=== PATIENT | male | born 1960 | race Caucasian/White ===

== ENCOUNTER 2023-03-09 06:57 | Emergency (ER) | payer OTHER, SELFPAY ==
[2023-03-09 06:59] VITALS: BP 138/88; PULSE 85; RESP 18; TEMP 36.7; O2SAT 98; BMI 31.3
[2023-03-09] MEDS: ORPHENADRINE 60 MG/ 2 ML VIAL IM (07:33)
[2023-03-09] MEDS: KETOROLAC TROMETHAMINE 60 MG/2 ML VIAL IM (07:33)
--- NOTE | 2023-03-09 07:35 | XR_ITS ---
The [address] [address] Patient Name: MARIAM LEE MRN: [id number] date: 1960 Sex: M Assigned Patient Location: ER Current Patient Location: ER Accession/Order Number: [id number] Exam Date: 03/09/2023 08:35 Report Date: 03/09/2023 09:10 At the request of: YOSHI ORELLANA Procedure: XR lumbar spine 2-3V EXAMINATION: XR lumbar spine 2-3V HISTORY: BACK PAIN r COMPARISON: No relevant comparison available. FINDINGS: BONES: Normal alignment with no acute fracture or spondylolisthesis. Mild degenerative spondylosis. Mild to moderate facet osteoarthropathy DISC SPACES: Moderate narrowing L5-S1 PARASPINOUS: Negative. No paraspinous abnormality is seen. OTHER: Dilated small bowel loops measuring up to 4.2 cm XR/XR lumbar spine 2-3V IMPRESSION: Mild degenerative changes of the spine Moderate dilation of small bowel loops Electronically authenticated by: SADIA VALDERRAMA Date: 03/09/2023 09:10
[2023-03-09 07:42] VITALS: O2SAT 96
[2023-03-09 07:43] VITALS: PULSE 80
--- NOTE | 2023-03-09 08:00 | ED_ITS ---
HPI - Back Pain/Injury General Chief Complaint: Back Pain/Injury Stated Complaint: back pain Time Seen by Provider: 03/09/23 07:03 Source: patient Mode of arrival: ambulance Limitations: no limitations History of Present Illness HPI Narrative: 62-year-old male presents for lower back pain. He was getting out of his truck and he twisted and had sudden severe pain in his lower back. He didn't fall and the pain does not radiate. It severe particularly when he tries to move. He does not have recurrent back problems. He's never had back surgery. No upper back pain or abdominal pain. Related Data Home Medications Medication Instructions Recorded Confirmed No Known Home Medications 03/09/23 03/09/23 Previous Rx's Medication Instructions Recorded cyclobenzaprine 10 mg tablet 10 mg PO TID PRN muscle spasm #20 03/09/23 tabs ibuprofen 800 mg tablet 800 mg PO Q8H PRN pain #20 tabs 03/09/23 ondansetron 4 mg disintegrating 4 mg PO Q6H PRN nausea and 03/09/23 tablet vomiting #20 tabs oxycodone-acetaminophen 5 mg-325 1 tab PO Q6H PRN pain #20 tabs 03/09/23 mg tablet (Percocet) Allergies Allergy/AdvReac Type Severity Reaction Status Date / Time Penicillins AdvReac Mild Verified 03/09/23 06:59 Review of Systems ROS Narrative A ten point review of systems is negative except as noted above. [facility] Medical History (Updated 03/09/23 @ 09:34 by Theo Contreras MD) Surgical History (Updated 03/09/23 @ 07:10 by Wai Wilson RN) Social History Smoking status: Never smoker Exam Narrative Exam Narrative: Nurses note and vital signs reviewed and patient is not hypoxic. General: The patient appears uncomfortable and is laying on the cart. Skin: Warm, dry, no pallor noted. There is no rash noted. Head: Normocephalic, atraumatic Eye: Normal conjunctiva, no drainage Ears, Nose, Mouth, and Throat: oral mucosa is moist. Nares patent. Cardiovascular: Regular Rate and Rhythm Respiratory: Patient is in no distress, no accessory muscle use, lungs are clear to auscultation, no wheezing, rales or rhonchi Back: no bruise or rash GI: soft and nontender Musculoskeletal: The patient has no evidence of calf tenderness, no pitting edema, symmetrical pulses noted bilaterally Neurological: A&O, normal speech Psychiatric: Cooperative Constitutional Vital Signs, click to edit/add: Last Vital Signs Temp 98.0 F 03/09/23 06:59 Pulse 82 03/09/23 08:47 Resp 18 03/09/23 08:47 BP 118/83 03/09/23 08:47 Pulse Ox 98 03/09/23 08:47 O2 Del Method Room Air 03/09/23 08:47 Course Vital Signs Vital signs: Vital Signs Temperature 98.0 F 03/09/23 06:59 Pulse Rate 85 03/09/23 06:59 Respiratory Rate 18 03/09/23 06:59 Blood Pressure 138/88 03/09/23 06:59 Pulse Oximetry 98 03/09/23 06:59 Oxygen Delivery Method Room Air 03/09/23 06:59 Temperature 98.0 F 03/09/23 06:59 Pulse Rate 82 03/09/23 08:47 Respiratory Rate 18 03/09/23 08:47 Blood Pressure 118/83 03/09/23 08:47 Pulse Oximetry 98 03/09/23 08:47 Oxygen Delivery Method Room Air 03/09/23 08:47 MDM - Back Pain/Injury MDM Narrative Medical decision making narrative: the patient was given Toradol, Norflex, and morphine and he'll be discharged home. X-ray findings are discussed with the patient. Treatment diagnosis and follow-up were discussed with the patient. Differential Diagnosis Differential diagnosis: Likely lumbar radiculopathy, sciatica and strain of lumbar region Imaging Data lumbar x-ray: Radiologist's impression: Procedure: XR lumbar spine 2-3V EXAMINATION: XR lumbar spine 2-3V HISTORY: BACK PAIN r COMPARISON: No relevant comparison available. FINDINGS: BONES: Normal alignment with no acute fracture or spondylolisthesis. Mild degenerative spondylosis. Mild to moderate facet osteoarthropathy DISC SPACES: Moderate narrowing L5-S1 PARASPINOUS: Negative. No paraspinous abnormality is seen. OTHER: Dilated small bowel loops measuring up to 4.2 cm IMPRESSION: Mild degenerative changes of the spine Moderate dilation of small bowel loops Electronically authenticated by: SADIA VALDERRAMA Date: 03/09/2023 09:10 Discharge Plan Discharge Chief Complaint: Back Pain/Injury Clinical Impression: Strain of lumbar region Patient Disposition: Home, Self-Care Time of Disposition Decision: 09:28 Condition: Good Mode of Transportation: Private Vehicle Prescriptions / Home Meds: New ibuprofen 800 mg tablet 800 mg PO Q8H PRN (Reason: pain) Qty: 20 0RF cyclobenzaprine 10 mg tablet 10 mg PO TID PRN (Reason: muscle spasm) Qty: 20 0RF oxycodone-acetaminophen [Percocet] 5-325 mg tablet 1 tab PO Q6H PRN (Reason: pain) Qty: 20 0RF ondansetron 4 mg tablet,disintegrating 4 mg PO Q6H PRN (Reason: nausea and vomiting) Qty: 20 0RF No Action No Known Home Medications Instructions: Low Back Strain (ED), Back Pain (ED) Stand Alone Forms: Portal Instructions Referrals: Physician,Non-Staff, MD [Primary Care Provider] - 1 week
[2023-03-09] MEDS: BENZONATATE 100 MG CAPSULE 200 MG PO (08:10)
[2023-03-09] MEDS: MORPHINE SULFATE 4 MG/ML VIAL 10 MG IM ×2 (08:10→09:41)
[2023-03-09 08:47] VITALS: BP 118/83; PULSE 82; RESP 18; O2SAT 98
[2023-03-09 10:17] VITALS: BP 126/88; PULSE 82; RESP 18; O2SAT 96
== END 2023-03-09 10:20 | disposition home or self-care (01) ==
PROVIDERS: Emergency Provider Emergency Medicine
DX: S39.012A Strain of muscle, fascia and tendon of lower back, initial encounter (principal); X50.1XXA Overexertion from prolonged static or awkward postures, initial encounter
CPT/HCPCS: 72100; 96372; 99284

== ENCOUNTER 2023-03-09 19:07 | Inpatient (IN) | payer OTHER, SELFPAY ==
[2023-03-09] VITALS (19 sets, daily range): BP systolic 111–153; BP diastolic 77–87; PULSE 73–104; RESP 1–23; TEMP 36.4–36.6; O2SAT 91–94; BMI 31.3; BMI 31.1
--- NOTE | 2023-03-09 19:46 | ED.GENADUL1 ---
HPI - General Adult General Chief complaint: Back Pain/Injury Stated complaint: VOMITING BLACK Time Seen by Provider: 03/09/23 19:22 Source: patient and family Mode of arrival: Wheelchair Limitations: no limitations History of Present Illness HPI narrative: patient seen here this AM for lower back muscular spasm. Discharged home. states shortly after arriving home he vomited black material . He has since vomited twice more and again it was black liquid material. Has not had a BM today. He states he has chronic KELLY which usually occur hs and he has been taking Motrin hs for many months. Denies abdominal or chest pain. Still has lower back pain if he moves. Not as painful if he lays still Related Data Home Medications Medication Instructions Recorded Confirmed No Known Home Medications 03/09/23 03/09/23 Previous Rx's Medication Instructions Recorded cyclobenzaprine 10 mg tablet 10 mg PO TID PRN muscle spasm #20 03/09/23 tabs ibuprofen 800 mg tablet 800 mg PO Q8H PRN pain #20 tabs 03/09/23 ondansetron 4 mg disintegrating 4 mg PO Q6H PRN nausea and 03/09/23 tablet vomiting #20 tabs oxycodone-acetaminophen 5 mg-325 1 tab PO Q6H PRN pain #20 tabs 03/09/23 mg tablet (Percocet) Allergies Allergy/AdvReac Type Severity Reaction Status Date / Time Penicillins AdvReac Mild Verified 03/09/23 06:59 Review of Systems ROS Status of ROS 10 or more systems reviewed and unremarkable except as noted in history and below [facility] Medical History (Updated 03/09/23 @ 21:49 by Axel Gannon MD) Surgical History (Updated 03/09/23 @ 07:10 by Wai Wilson RN) Social History Smoking status: Never smoker Exam Constitutional Vital Signs, click to edit/add: Last Vital Signs Temp 97.8 F 03/09/23 19:21 Pulse 76 03/09/23 21:20 Resp 13 03/09/23 21:20 BP 120/79 03/09/23 20:00 Pulse Ox 91 L 03/09/23 20:10 O2 Del Method Room Air 03/09/23 19:21 Common normals: no apparent distress, average body habitus, oriented x3, no limitations, healthy appearing, alert and well nourished [facility] Common normals: normocephalic and head/scalp atraumatic Respiratory Common normals: normal respiratory effort, no retractions, no use of accessory muscles and clear to auscultation bilaterally Cardio Common normals: regular rate, regular rhythm, S1 normal heart sound and S2 normal heart sound GI Common normals: Normal to inspection, nondistended, normoactive bowel sounds present, soft to palpation and non-tender Extremity Common normals: normal to inspection and full ROM Neuro Common normals: oriented x3, CN's II-XII intact bilaterally, moves all extremities, no focal motor deficits and no sensory deficits noted Psych Appearance: grossly normal Course Vital Signs Vital signs: Vital Signs Temperature 97.8 F 03/09/23 19:21 Pulse Rate 104 H 03/09/23 19:21 Respiratory Rate 16 03/09/23 19:21 Blood Pressure 133/81 03/09/23 19:21 Pulse Oximetry 93 L 03/09/23 19:21 Oxygen Delivery Method Room Air 03/09/23 19:21 Temperature 97.8 F 03/09/23 19:21 Pulse Rate 76 03/09/23 21:20 Respiratory Rate 13 03/09/23 21:20 Blood Pressure 120/79 03/09/23 20:00 Pulse Oximetry 91 L 03/09/23 20:10 Oxygen Delivery Method Room Air 03/09/23 19:21 Medical Decision Making [facility] Narrative Medical decision making narrative: patient presents with back pain and UGI bleed. Seen earlier today for lower back muscular spasmodic pain. once home he vomited dark black liquid material x 3 and retuned. Still has pain if he changes position. As long as he lays still his back pain is not bad. NG placed and 200 of black GI liquid obtained. No evidence of active bleeding. Hgb 15. BUN 23. Patient VSS. Give protonix [address] Lane who is international affairs vice president Surgeon and can consult on the patient. Discussed with Dr Carrillo and patient accepted as as admission Lab Data Labs: Lab Results 03/09/23 Range/Units 19:50 WBC 11.8 H (4.0-11.0) 10^3/uL RBC 4.83 (4.70-6.10) 10^6/uL Hgb 15.0 (14.0-18.0) g/dL Hct 44.4 (42.0-54.0) % MCV 91.9 (80.0-94.0) fL MCH 31.1 (25.9-34.0) pg MCHC 33.8 (29.9-35.2) g/dL RDW 12.8 (11.0-15.0) % Plt Count 245 (150-450) 10^3/uL MPV 9.2 L (9.5-13.5) fL Neut % (Auto) 84.2 H (43.0-75.0) % Lymph % (Auto) 7.9 L (20.5-60.0) % Christian % (Auto) 7.1 (1.7-12.0) % Eos % (Auto) 0.1 L (0.9-7.0) % Baso % (Auto) 0.3 (0.2-2.0) % Neut # (Auto) 10.0 H (1.4-6.5) 10^3/uL Lymph # (Auto) 0.9 L (1.2-3.8) 10^3/uL Christian # (Auto) 0.8 (0.3-0.8) 10^3/uL Eos # (Auto) 0.0 (0.0-0.7) 10^3/uL Baso # (Auto) 0.0 (0.0-0.1) 10^3/uL Abs Immat Gran (auto) 0.05 H (0.00-0.03) 10^3/uL Imm/Tot Granulo (auto) 0.4 (0.0-0.5) % Sodium 131 L (136-145) mmol/L Potassium 4.0 (3.5-5.1) mmol/L Chloride 105 (98-107) mmol/L Carbon Dioxide 23.9 (21.0-32.0) mmol/L Anion Gap 6.1 BUN 23.0 H (7.0-18.0) mg/dL Creatinine 0.93 (0.70-1.30) mg/dL Est GFR ( Amer) >60 (>=60) Est GFR (Non-Af Amer) >60 (>=60) BUN/Creatinine Ratio 24.7 Glucose 134 H (74-106) mg/dL Lactate 2.0 (0.4-2.0) mmol/L Calcium 8.4 L (8.5-10.1) mg/dL Total Bilirubin 0.5 (0.2-1.0) mg/dL AST 15 (15-37) U/L ALT 29 (16-63) U/L Alkaline Phosphatase 46 (46-116) U/L Troponin I High Sens <4.0 L (4.0-76.1) pg/mL Total Protein 7.4 (6.4-8.2) g/dL Albumin 3.9 (3.4-5.0) g/dL Globulin 3.5 g/dL Albumin/Globulin Ratio 1.1 Discharge Plan Discharge Chief Complaint: Back Pain/Injury Clinical Impression: Back pain, Acute upper gastrointestinal bleeding Patient Disposition: Admitted As Inpatient
[2023-03-09] MEDS: LORAZEPAM 2 MG/ML 1 ML VIAL 1 MG IV (20:01)
[2023-03-09] MEDS: ONDANSETRON PF 4 MG/2 ML VIAL IV (20:01)
[2023-03-09] MEDS: 0.9 % SODIUM CHLORIDE 1,000 ML 999 ML IV (20:01)
[2023-03-09 20:02] LABS: Basophils Percent Auto 0.3 % (0.2-2.0); Eosinophils Percent Auto 0.1 % (0.9-7.0); Hematocrit 44.4 % (42.0-54.0); Immature Granulocytes Abs Auto 0.05 10^3/uL (0.00-0.03); Immature Granulocytes Pct Auto 0.4 % (0.0-0.5); Lymphocytes Absolute Auto 0.9 10^3/uL (1.2-3.8); Lymphocytes Percent Auto 7.9 % (20.5-60.0); Mean Corpuscular HGB Conc 33.8 g/dL (29.9-35.2); Mean Corpuscular Hemoglobin 31.1 pg (25.9-34.0); Mean Corpuscular Volume 91.9 fL (80.0-94.0); Mean Platelet Volume 9.2 fL (9.5-13.5); Monocytes Absolute Auto 0.8 10^3/uL (0.3-0.8); Monocytes Percent Auto 7.1 % (1.7-12.0); Neutrophils Percent Auto 84.2 % (43.0-75.0); Platelet Count 245 10^3/uL (150-450); Red Blood Count 4.83 10^6/uL (4.70-6.10); Red Cell Distribution Width 12.8 % (11.0-15.0); White Blood Count 11.8 10^3/uL (4.0-11.0)
[2023-03-09] MEDS: PANTOPRAZOLE SODIUM 40 MG VIAL IV (20:04)
--- NOTE | 2023-03-09 20:29 | PC.NURSE ---
NG placed to right nare 16 romansh, 65 at the nare Pt tolerated well Coffee ground emesis immediately presented Set to low suction
--- NOTE | 2023-03-09 20:42 | XR_ITS ---
The [address] [address] Patient Name: MARIAM LEE MRN: [id number] date: 1960 Sex: M Assigned Patient Location: ER Current Patient Location: ER Accession/Order Number: [id number] Exam Date: 03/09/2023 20:50 Report Date: 03/09/2023 21:13 At the request of: MIGUEL CASTRO Procedure: XR abdomen 1V EXAM: XR abdomen 1V HISTORY: NG placement COMPARISON: None. TECHNIQUE: Single AP radiograph of the abdomen FINDINGS: Enteric tube with tip and side port projecting over the expected location of the gastric fundus. There is a nonobstructive bowel gas pattern. Evaluation for intra-abdominal free air is limited on supine radiography. Large abdominal stone or calcifications. Imaged osseous structures appear intact. XR/XR abdomen 1V IMPRESSION: Enteric tube with tip and side-port projecting over expected location of the gastric fundus. Nonobstructive bowel gas pattern. Electronically authenticated by: RAMONA BRYANT Date: 03/09/2023 21:13
[2023-03-09 21:31] LABS: Alanine Aminotransferase 29 U/L (16-63); Albumin Globulin Ratio 1.1; Albumin Level 3.9 g/dL (3.4-5.0); Alkaline Phosphatase 46 U/L (46-116); Anion Gap 6.1; Aspartate Amino Transferase 15 U/L (15-37); BUN Creatinine Ratio 24.7; Bilirubin Total 0.5 mg/dL (0.2-1.0); Calcium 8.4 mg/dL (8.5-10.1); Carbon Dioxide 23.9 mmol/L (21.0-32.0); Chloride 105 mmol/L (98-107); Estimated GFR (African America >60 (>=60); Estimated GFR (Non-African Ame >60 (>=60); Globulin 3.5 g/dL; Glucose 134 mg/dL (74-106); Sodium 131 mmol/L (136-145); Total Protein 7.4 g/dL (6.4-8.2); Troponin I High Sensitivity <4.0 pg/mL (4.0-76.1)
--- NOTE | 2023-03-09 21:31 | PC.NURSE ---
Drr. Gannon speaking to Dr. Lane about an admission/surgery decision
--- NOTE | 2023-03-09 21:34 | PC.NURSE ---
Approximately 200ml of coffee ground like emesis is present in suction canister at this time
[2023-03-10] VITALS (17 sets, daily range): BP systolic 110–122; BP diastolic 67–80; PULSE 78–92; RESP 16–20; TEMP 36.6–36.9; O2SAT 90–95
--- NOTE | 2023-03-10 00:18 | P.PN_ITS ---
Progress Note: Subjective Subjective Interval history: CC: Severe low back pain with muscle spasm Repeated episodes of hematemesis HPI: This is usually healthy 62-year-old male who presents with above complaints. Patient stating that he has been having back pain for few days now. He denies taking excessive amount of NSAIDs. Patient does admit taking ibuprofen daily at nighttime because of headaches. Patient drinks 2?3 beers daily. No history of peptic ulcer, gastritis. Denies any abdominal pain. Sarah ent stating that 2 days he suddenly vomited few times with dark blood in it. He continued to have hematemesis in the emergency room. Dr. Moser consulted and recommended NG tube placement and he is going to see patient in consultation in the morning. Patient starting hemoglobin is 15. Exam Narrative Exam Narrative: ROS: 1.General: no fever, chills, not in distress 2.HEENT: no KELLY, no blurry vision, no swallow problems, no nasal congestion, no sore throat 3.Pulmonary: no cough, SOB, wheezes 4.CVS: no CP, no palpitations, no CAMPBELL, no SOB, no intermittent claudication 5.GI: Please see above 6.: no renal colic, no hematuria, urinary frequency or urgency 7.Extremities: no edema 8.Neurological: no dizziness, vertigo, double or blurry vision, no no focal weakness, no paresthesia, no swallow or speech problems 9.Musculosceletal: no joint pains, no joint swelling, no back pain 10.Dermatological: no skin rashes, no lesions, no pruritus 11.Hematological: no bleeding, no hx/o clots 12.Endocrinological: no heat/cold intolerance, no hx/o diabetes 13.Psychiatric: no suicidal or homicidal thoughts Physical Exam: Not in distress, pleasant, lucid, cooperative, Head - atraumatic, eyes - pupils equal, round, reactive to light, extra ocular movement intact, MMM Neck - supple, thyroid not enlarged, LN not palpated Lungs - clear to auscultation, no dullness on percussion CVS - heart sounds S1, S2, no additional murmurs gallop, regular rate and rhythm Gastrointestinal?abdomen is soft, non-tender, non-distended, no organomegaly, positive bowel sounds Extremities no clubbing, cyanosis or edema Neurological?cranial nerve II?XII grossly intact, no meningeal signs, no cerebellar signs, no sensory deficit Musculoskeletal - joints, no effusions, ROM preserved Dermatological - the skin dry, warm, no rashes Psychiatric?patient is AAO X3, patient has normal affect Constitutional Vital Signs, click to edit/add: Last Vital Signs Temp 97.6 F 03/09/23 22:46 Pulse 92 H 03/09/23 22:46 Resp 18 03/09/23 22:46 BP 153/87 H 03/09/23 22:46 Pulse Ox 91 L 03/09/23 22:46 O2 Del Method Room Air 03/09/23 22:57 Progress Note: Objective Labs Labs: Short CBC 03/09/23 Range/Units 19:50 WBC 11.8 H (4.0-11.0) 10^3/uL Hgb 15.0 (14.0-18.0) g/dL Hct 44.4 (42.0-54.0) % Plt Count 245 (150-450) 10^3/uL BMP 03/09/23 19:50 Sodium 131 L Potassium 4.0 Chloride 105 Carbon Dioxide 23.9 BUN 23.0 H Creatinine 0.93 Glucose 134 H Calcium 8.4 L Liver Function 03/09/23 Range/Units 19:50 Total Bilirubin 0.5 (0.2-1.0) mg/dL AST 15 (15-37) U/L ALT 29 (16-63) U/L Alkaline Phosphatase 46 (46-116) U/L Albumin 3.9 (3.4-5.0) g/dL Progress Note: A&P Assessment and Plan (1) Acute upper gastrointestinal bleeding: Assessment and Plan: GI bleeding- patient condition is guarded and requires admission to telemetry floor for close monitoring and medical management - source of bleeding - upperr GI tract - bowel rest - IV Protonix drip- no coagulopathy present - no need for immediate correction - will consult Care Support Representative to evaluate for urgent EGD/colonoscopy - close monitoring H&H - type and cross - transfuse PRBCs for Hb below 7 if stable of below 8 if continue to bleed (2) Lumbar strain: Assessment and Plan: I am going to start this patient on IV morphine and lorazepam for pain and muscle spasm control Plan END: As the provider for the telehealth service, I attest that I introduced myself to the patient, provided my credentials, disclosed by location and determined that based on a review of the patient's chart and discussion with members of the patient's treatment team, telemedicine via real-time, 2 way, and interactive audio and video platform is an appropriate and effective means of providing the service. ?The patient and I mutually agree this visit is appropriate for telemedicine. ?[place] ?The encounter took approximately 35 minutes. ?The nurse was present during the entire time and I was able to move the stethoscope in appropriate directions. ?The patient was evaluated at the Hospital ? Portions of this note may be dictated using [employer] voice recognition software. Variances in spelling and vocabulary are possible and unintentional. Not all errors may be caught and/or corrected. Please notify the author if any discrepancies are noted and/or if the meaning of any statement is unclear.? ? Patient verbally consented for treatment via video visit with patient currently located at the [facility] and provider located in [place]. Telemedicine Attestation Telemedicine Attestation I conducted this encounter from [facility]] via secure live, [id number] video conference with the patient, located at [facility] with [GI bleed]. Prior to the interview, the risks and benefits of telemedicine were discussed with the patient and verbal consent was obtained.
[2023-03-10] MEDS: 0.9 % SODIUM CHLORIDE 1,000 ML 100 ML IV ×2 (02:14→20:25)
[2023-03-10] MEDS: PANTOPRAZOLE SODIUM 40 MG VIAL IV ×3 (02:14→23:57)
[2023-03-10 02:42] LABS: Lactate/Lactic Acid 1.1 mmol/L (0.4-2.0)
[2023-03-10 04:35] LABS: Hemoglobin 13.6 g/dL (14.0-18.0)
[2023-03-10 04:54] LABS: Anion Gap 11.3; BUN Creatinine Ratio 23.3; Carbon Dioxide 26.8 mmol/L (21.0-32.0); Chloride 109 mmol/L (98-107); Estimated GFR (African America >60 (>=60); Estimated GFR (Non-African Ame >60 (>=60); Glucose 106 mg/dL (74-106); Potassium 4.1 mmol/L (3.5-5.1); Sodium 143 mmol/L (136-145)
[2023-03-10 05:08] LABS: Lactate/Lactic Acid 0.9 mmol/L (0.4-2.0)
--- NOTE | 2023-03-10 05:55 | ECG_ITS ---
The [facility] Test Date: 2023-03-09 Pat Name: MARIAM LEE Department: Room: [facility] Gender: Male [employer]: : [id number] Requested By: [id number] Order Number: [id number] Reading MD: SLY DAN Measurements Intervals [place] Rate: 70 P: 36 CT: 146 QRS: 65 QRSD: 92 T: 7 QT: 394 QTc: 414 Interpretive Statements 1100 Sinus rhythm 4068 Nonspecific Twave abnormality 9130 borderline ECG No previous ECG available for comparison Electronically Signed On 03-12-2023 13:05:31 EDT by SLY DAN
[2023-03-10] MEDS: MORPHINE SULFATE 2 MG/ML SYRINGE IV ×2 (06:21→11:35)
[2023-03-10 08:57] LABS: Hematocrit 41.8 % (42.0-54.0); Hemoglobin 13.4 g/dL (14.0-18.0)
[2023-03-10 09:17] LABS: INR 0.97; Partial Thromboplastin Time 25.4 sec (22.3-36.2); Prothrombin Time 10.3 sec (9.0-11.6)
--- NOTE | 2023-03-10 11:30 | P.GSCN_ITS ---
History of Present Illness Consult details Consult date: 03/10/23 Narrative: 62-year-old male who presented to the Emergency Department 2nd occasion yesterday complaints of lower back pain and on the 2nd visit to the Emergency Department complaining of coffee-ground emesis. He takes 600 mg of ibuprofen nightly and drinks 2-3 beers daily. He denies any history of ulcer disease or gastritis. He has a nasogastric tube in place with minimal drainage today. His hemoglobin is stable at 15 g. His had chronic low back pain for quite a while and was told it was muscle spasms. He denies any lifting recently. He works at [employer]. He does no lifting there. 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 He also complains of migraine headaches for which she takes the ibuprofen as well.he is up-to-date on his colonoscopies.denies any abdominal pain nausea or vomiting other than above. Review of Systems ROS Status of ROS 10 or more systems reviewed and unremarkable except as noted in history and below [facility] Medical History (Updated 03/09/23 @ 22:42 by Andreina Biggs RN) Surgical History Family History Other Family history of diabetes mellitus Social History Within the past year, how often did you have a drink containing alcohol: 2-3 times a week Within the past year, how many standard drinks containing alcohol did you have on a typical day: 1 or 2 Total score: 0 Score interpretation: A score less than 4 is consistent with normal alcohol consumption. Smoking status: Never smoker Non-prescribed substance use: denies use Highest level of school completed/degree received: high school graduate Are you now , , , , never or living with a partner: In a typical week, how many times do you talk on the telephone with family, friends, or neighbors: 3 or more times per week How often do you get together with friends or relatives: 3 or more times per week Little interest or pleasure in doing things: not at all Feeling down, depressed, or hopeless: not at all Feel stressed/tense/nervous/anxious/difficulty sleeping: not at all Do you think of yourself as: straight/heterosexual Gender Identity: male Meds Home Medications and Allergies Home Medications Medication Instructions Recorded Confirmed Type No Known Home Medications 03/09/23 03/10/23 History ibuprofen 800 mg tablet 800 mg PO Q8H PRN pain #20 tabs 03/09/23 03/10/23 Rx ondansetron 4 mg disintegrating 4 mg PO Q6H PRN nausea and 03/09/23 03/10/23 Rx tablet vomiting #20 tabs oxycodone-acetaminophen 5 mg-325 1 tab PO Q6H PRN pain #20 tabs 03/09/23 03/10/23 Rx mg tablet (Percocet) Allergies Allergy/AdvReac Type Severity Reaction Status Date / Time Penicillins AdvReac Mild Verified 03/09/23 06:59 Exam Constitutional Vital Signs, click to edit/add: Last Vital Signs Temp 98.4 F 03/10/23 06:25 Pulse 87 03/10/23 06:25 Resp 20 03/10/23 06:25 BP 110/67 03/10/23 06:25 Pulse Ox 91 L 03/10/23 06:25 O2 Del Method Room Air 03/10/23 06:25 Documenting provider has reviewed patient's vital signs: yes Common normals: no apparent distress, average body habitus, oriented x3, healthy appearing and well nourished [facility] Common normals: normocephalic GI Common normals: Normal to inspection, nondistended, normoactive bowel sounds present, soft to palpation and no masses Palpation: tender Details: LLQ Neuro Common normals: oriented x3 and CN's II-XII intact bilaterally Results Labs Labs: Abnormal lab results 03/09/23 03/10/23 03/10/23 Range/Units 19:50 04:11 08:17 WBC 11.8 H (4.0-11.0) 10^3/uL Hgb 13.6 L 13.4 L (14.0-18.0) g/dL Hct 41.8 L (42.0-54.0) % MPV 9.2 L (9.5-13.5) fL Neut % (Auto) 84.2 H (43.0-75.0) % Lymph % (Auto) 7.9 L (20.5-60.0) % Eos % (Auto) 0.1 L (0.9-7.0) % Neut # (Auto) 10.0 H (1.4-6.5) 10^3/uL Lymph # (Auto) 0.9 L (1.2-3.8) 10^3/uL Abs Immat Gran (auto) 0.05 H (0.00-0.03) 10^3/uL Sodium 131 L (136-145) mmol/L Chloride 109 H (98-107) mmol/L BUN 23.0 H 21.0 H (7.0-18.0) mg/dL Glucose 134 H (74-106) mg/dL Calcium 8.4 L 8.0 L (8.5-10.1) mg/dL Troponin I High Sens <4.0 L (4.0-76.1) pg/mL Diabetes panel 03/09/23 03/10/23 Range/Units 19:50 04:11 Sodium 131 L 143 (136-145) mmol/L Potassium 4.0 4.1 (3.5-5.1) mmol/L Chloride 105 109 H (98-107) mmol/L Carbon Dioxide 23.9 26.8 (21.0-32.0) mmol/L BUN 23.0 H 21.0 H (7.0-18.0) mg/dL Creatinine 0.93 0.90 (0.70-1.30) mg/dL Glucose 134 H 106 (74-106) mg/dL Calcium 8.4 L 8.0 L (8.5-10.1) mg/dL AST 15 (15-37) U/L ALT 29 (16-63) U/L Alkaline Phosphatase 46 (46-116) U/L Total Protein 7.4 (6.4-8.2) g/dL Albumin 3.9 (3.4-5.0) g/dL Calcium panel 03/09/23 03/10/23 Range/Units 19:50 04:11 Calcium 8.4 L 8.0 L (8.5-10.1) mg/dL Albumin 3.9 (3.4-5.0) g/dL Pituitary panel 09/15/23 09/16/23 Range/Units 19:50 04:11 Sodium 131 L 143 (136-145) mmol/L Potassium 4.0 4.1 (3.5-5.1) mmol/L Chloride 105 109 H (98-107) mmol/L Carbon Dioxide 23.9 26.8 (21.0-32.0) mmol/L BUN 23.0 H 21.0 H (7.0-18.0) mg/dL Creatinine 0.93 0.90 (0.70-1.30) mg/dL Glucose 134 H 106 (74-106) mg/dL Calcium 8.4 L 8.0 L (8.5-10.1) mg/dL Adrenal panel 03/09/23 03/10/23 Range/Units 19:50 04:11 Sodium 131 L 143 (136-145) mmol/L Potassium 4.0 4.1 (3.5-5.1) mmol/L Chloride 105 109 H (98-107) mmol/L Carbon Dioxide 23.9 26.8 (21.0-32.0) mmol/L BUN 23.0 H 21.0 H (7.0-18.0) mg/dL Creatinine 0.93 0.90 (0.70-1.30) mg/dL Glucose 134 H 106 (74-106) mg/dL Calcium 8.4 L 8.0 L (8.5-10.1) mg/dL Total Bilirubin 0.5 (0.2-1.0) mg/dL AST 15 (15-37) U/L ALT 29 (16-63) U/L Alkaline Phosphatase 46 (46-116) U/L Total Protein 7.4 (6.4-8.2) g/dL Albumin 3.9 (3.4-5.0) g/dL All other labs normal. Assessment and Plan Assessment and Plan (1) Acute upper gastrointestinal bleeding: (2) Lumbar strain: Plan discontinue NG tube Try clear liquids Probably scope with EGD tomorrow morning. Continue Protonix drip.
--- NOTE | 2023-03-10 11:57 | P.HP_ITS ---
H&P: HPI History of Present Illness Chief complaint: VOMITING BLACK UPPER Gi BLEED BACK PAIN Narrative: Patient with a longstanding history of back pain was seen in the ER earlier in the day and given medication, went home and had several emesis, started having black coffee-ground emesis at home. Presented to the emergency room. Hemoglobin excellent in ER but with significance of potential bleeding patient was admitted for work-up and treatment of same Review of Systems ROS Status of ROS 10 or more systems reviewed and unremarkable except as noted in history and below [facility] Medical History (Updated 03/09/23 @ 22:42 by Andreina Biggs RN) Surgical History Family History Other Family history of diabetes mellitus Social History Within the past year, how often did you have a drink containing alcohol: 2-3 times a week Within the past year, how many standard drinks containing alcohol did you have on a typical day: 1 or 2 Total score: 0 Score interpretation: A score less than 4 is consistent with normal alcohol consumption. Smoking status: Never smoker Non-prescribed substance use: denies use Highest level of school completed/degree received: high school graduate Are you now , , , , never or living with a partner: In a typical week, how many times do you talk on the telephone with family, friends, or neighbors: 3 or more times per week How often do you get together with friends or relatives: 3 or more times per week Little interest or pleasure in doing things: not at all Feeling down, depressed, or hopeless: not at all Feel stressed/tense/nervous/anxious/difficulty sleeping: not at all Do you think of yourself as: straight/heterosexual Gender Identity: male Meds Home Medications and Allergies Home Medications Medication Instructions Recorded Confirmed Type No Known Home Medications 03/09/23 03/10/23 History ibuprofen 800 mg tablet 800 mg PO Q8H PRN pain #20 tabs 03/09/23 03/10/23 Rx ondansetron 4 mg disintegrating 4 mg PO Q6H PRN nausea and 09/15/23 09/16/23 Rx tablet vomiting #20 tabs oxycodone-acetaminophen 5 mg-325 1 tab PO Q6H PRN pain #20 tabs 03/09/23 03/10/23 Rx mg tablet (Percocet) Allergies Allergy/AdvReac Type Severity Reaction Status Date / Time Penicillins AdvReac Mild Verified 03/09/23 06:59 Exam Constitutional Vital Signs, click to edit/add: Last Vital Signs Temp 98.4 F 03/10/23 06:25 Pulse 87 03/10/23 06:25 Resp 20 03/10/23 06:25 BP 110/67 03/10/23 06:25 Pulse Ox 91 L 03/10/23 06:25 O2 Del Method Room Air 03/10/23 06:25 Common normals: no apparent distress, average body habitus, oriented x3, no limitations, healthy appearing, alert and well nourished [facility] Common normals: normocephalic and head/scalp atraumatic Respiratory Common normals: normal respiratory effort, no retractions, no use of accessory muscles and clear to auscultation bilaterally Cardio Common normals: regular rate, regular rhythm, S1 normal heart sound and S2 normal heart sound GI Common normals: Normal to inspection, nondistended, normoactive bowel sounds present, soft to palpation and non-tender Extremity Common normals: normal to inspection and full ROM Neuro Common normals: oriented x3, CN's II-XII intact bilaterally, moves all extremities, no focal motor deficits and no sensory deficits noted Psych Appearance: grossly normal Results Labs Labs: Short CBC 03/09/23 03/10/23 03/10/23 Range/Units 19:50 04:11 08:17 WBC 11.8 H (4.0-11.0) 10^3/uL Hgb 15.0 13.6 L 13.4 L (14.0-18.0) g/dL Hct 44.4 42.0 41.8 L (42.0-54.0) % Plt Count 245 (150-450) 10^3/uL BMP 03/09/23 03/10/23 19:50 04:11 Sodium 131 L 143 Potassium 4.0 4.1 Chloride 105 109 H Carbon Dioxide 23.9 26.8 BUN 23.0 H 21.0 H Creatinine 0.93 0.90 Glucose 134 H 106 Calcium 8.4 L 8.0 L Liver Function 03/09/23 Range/Units 19:50 Total Bilirubin 0.5 (0.2-1.0) mg/dL AST 15 (15-37) U/L ALT 29 (16-63) U/L Alkaline Phosphatase 46 (46-116) U/L Albumin 3.9 (3.4-5.0) g/dL Assessment and Plan Assessment and Plan (1) Acute upper gastrointestinal bleeding: (2) Lumbar strain: (3) Strain of lumbar region: Plan Acute upper gastrointestinal blood loss anemia secondary to acute upper gastrointestinal bleeding-patient is down 1.5 g on his hemoglobin, will continue to check every 4 hours. NG tube in place, surgical consultation completed, check PT PTT, H. pylori Back pain-patient continues to have spasms, will add Norflex IV Mild leukocytosis resolved this morning, likely secondary to pain or possibly recent steroid use Hyponatremia-improved, continue to monitor
[2023-03-10 13:08] LABS: Hematocrit 41.3 % (42.0-54.0); Hemoglobin 13.5 g/dL (14.0-18.0)
--- NOTE | 2023-03-10 13:21 | PC.NURSE ---
ng removed at this time per physician order. patient tolerated without complaint.
[2023-03-10] MEDS: ORPHENADRINE 60 MG/ 2 ML VIAL IV ×2 (14:03→23:57)
[2023-03-10 16:25] LABS: Hematocrit 41.3 % (42.0-54.0); Hemoglobin 13.3 g/dL (14.0-18.0)
[2023-03-10 20:10] LABS: Hematocrit 40.9 % (42.0-54.0); Hemoglobin 13.1 g/dL (14.0-18.0)
[2023-03-11] VITALS (84 sets, daily range): BP systolic 89–140; BP diastolic 63–82; PULSE 69–145; RESP 5–42; TEMP 36.3–37.2; O2SAT 89–99
[2023-03-11 00:56] LABS: Hematocrit 39.6 % (42.0-54.0); Hemoglobin 12.7 g/dL (14.0-18.0)
[2023-03-11 04:53] LABS: Hematocrit 39.6 % (42.0-54.0); Hemoglobin 12.9 g/dL (14.0-18.0)
[2023-03-11] MEDS: MORPHINE SULFATE 2 MG/ML SYRINGE IV (07:47)
[2023-03-11] MEDS: LACTATED RINGER'S SOLUTION 1,000 ML 50 ML IV (08:10)
[2023-03-11 08:11] LABS: Hematocrit 40.6 % (42.0-54.0); Hemoglobin 13.3 g/dL (14.0-18.0)
--- NOTE | 2023-03-11 08:22 | PM.GSPRC ---
Date of procedure: 03/11/23 Indications for Procedure: hematemesis/coffee-ground emesis Pre-op diagnosis: hematemesis/coffee-ground emesis Post-op diagnosis: other (multiple gastric ulcers, small hiatal hernia, erosive esophagitis) Procedure: EGD with biopsy antrum and distal esophagus Findings: as above Anesthesia: MAC Surgeon: Shay Lane Procedure Summary: 62-year-old male was taken to the endoscopy suite placed in the left lateral recumbent position and given IV sedation by the counter installer. The Olympus EGD scope was advanced under direct visualization into the esophagus stomach through the pylorus to the 1st 2nd 3rd and 4th portions of the duodenum.the duodenum was completely normal. In the stomach he had multiple gastric ulcers which biopsies were taken and hemostasis maintained. Scope was retroflexed on itself looking the GE junction. A small hiatal hernia noted. The scope was then withdrawn from the stomach into the distal esophagus where he has erosive esophagitis noted and biopsies were taken ?2 and hemostasis maintained and the rest the esophagus was normal. I would recommend discontinuation of all nonsteroidal anti-inflammatory drugs, alcohol and recommend a proton pump inhibitor for eight weeks plus silk with eight for one month. Estimated blood loss (mL): 1 Specimens: antral and esophageal biopsies Complications: No Condition: stable Disposition: PACU
--- NOTE | 2023-03-11 09:26 | ECG_ITS ---
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
[2023-03-11] MEDS: METOPROLOL TARTRATE 5 MG/5 ML VIAL IVP ×2 (09:43→10:12)
--- NOTE | 2023-03-11 10:31 | PC.NURSE ---
notified physician dr rodriguez thats currently on the floor patient states pain in chest is now a 3/10and feels heavy like pressure. physician states he will address.
[2023-03-11] MEDS: NITROGLYCERIN 0.4 MG BOTTLE PO (10:37)
[2023-03-11] MEDS: OMEPRAZOLE 40 MG CAPSULE.DR PO ×2 (10:40→20:41)
[2023-03-11 10:44] LABS: Troponin I High Sensitivity 6.2 pg/mL (4.0-76.1)
[2023-03-11 10:49] LABS: Thyroid Stimulating Hormone 2.261 uIU/mL (0.358-3.740)
[2023-03-11] MEDS: DILTIAZEM HCL 25 MG/5 ML VIAL 10 MG IV (11:02)
[2023-03-11] MEDS: 0.9 % SODIUM CHLORIDE 1,000 ML 100 ML IV (11:24)
--- NOTE | 2023-03-11 12:14 | CA_ITS ---
Patient: MARIAM LEE Exam Date: 03/12/2023 : 1960 Gender:M Ordering : SHAIKH Rock DESAI . Admission #: [id number] Family : SLY FORDDada . Order #: [id number] CLICK HERE TO VIEW EXAM ECHOCARDIOGRAM REPORT PROCEDURE: CA ECHO DOPPLER COMPLETE INDICATIONS: new onset afib COMPARISON: None. DESCRIPTION: COMPLETE ECHOCARDIOGRAM Real-time transthoracic echocardiography with 2D, M-mode, spectral and color flow Doppler performed. QUALITY: Technical quality was good. LEFT VENTRICLE: Normal chamber size. Normal left ventricular wall thickness. LV EF: Global left ventricular systolic function is normal. Visual estimation of left ventricular ejection fraction is 65% DIASTOLIC: Normal diastolic function. ATRIAL SEPTUM: Inadequately seen. LEFT ATRIUM: Normal chamber size. RIGHT ATRIUM: Mild dilatation. RIGHT VENTRICLE: Normal chamber size. Normal right ventricular systolic function. TRICUSPID VALVE: Normal mobility and thickness. No stenosis with trivial regurgitation. No evidence of pulmonary hypertension. RVSP 28mmHg MITRAL VALVE: Normal mobility and thickness. No evidence of mitral valve stenosis. There is no mitral annular calcification. Trivial mitral regurgitation. AORTIC VALVE: Normal trileaflet appearance. No visible sclerosis. Normal leaflet mobility. No evidence of aortic valve stenosis. No aortic regurgitation. AORTIC ROOT: Normal diameter and appearance. PULMONIC VALVE: Normal thickness and mobility. No stenosis. No regurgitation. PERICARDIUM: No evidence of pericardial effusion. IVC: Collapses with inspirations. Normal size. CONCLUSION: 1. Global left ventricular systolic function is normal; visually estimated ejection fraction is 60 to 65% 2. Normal diastolic function 3. The right atrium is mildly dilated 4. The right ventricle is normal in size and systolic function 5. No significant valvular abnormalities Adult Echocardiography Procedure Report Left Ventricle LVEDD (3.7 - 5.6 cm): 4.23 cm LVESD (2.2 - 4.0 cm): 2.77 cm LVIVS thickness (0.6 - 1.2 cm): 1.07 cm LVPW thickness (0.5 - 1.0 cm): 0.98 cm e': 0.13 m/s E - e': 6.53 LVOT Max Gradient: 5.81 mm[Hg], 5.36 mm[Hg] LVOT Area (cm2): 1.18 m/s Peak Velocity (LVOT): 1.20 m/s, 1.16 m/s Mean Velocity (LVOT): 0.84 m/s LVOT Diameter 2.17 cm Left Ventricular Ejection Fraction: 69.88 % Left Atrium LA Volume Index (2D A2C): 23.84 ml/m2 Left Atrium Systolic Dimension: 3.21 cm Mitral Valve MV E to A Ratio: 1.15 Mitral Valve A-Wave Peak Velocity: 0.71 m/s Mitral Valve E-Wave Peak Velocity: 0.82 m/s Right Ventricle RV Internal Diastolic Dimension: 3.73 cm Aorta AO Root Diam: 2.23 cm Ascending Ao Diam: 3.39 cm Aortic Valve AoV Area (Peak Hakan): 3.22 cm2, 3.28 cm2, 3.16 cm2 AoV Area (VTI): 3.01 cm2, 3.00 cm2, 3.02 cm2 Peak Velocity(Antegrade Flow): 1.36 m/s, 1.36 m/s Peak Gradient(Antegrade Flow): 7.41 mm[Hg], 7.41 mm[Hg] Mean Velocity(Antegrade Flow): 0.97 m/s, 0.96 m/s Mean Gradient(Antegrade Flow): 4.27 mm[Hg], 4.21 mm[Hg] Velocity Time Integral: 27.04 cm, 26.74 cm Tricuspid Valve Peak Velocity (Regurgitant Flow): 2.07 m/s, 1.98 m/s, 2.49 m/s Pulmonic Valve Mean Gradient: 1.82 mm[Hg], 2.21 mm[Hg], 1.67 mm[Hg], 1.81 mm[Hg] Mean Velocity: 0.65 m/s, 0.72 m/s, 0.62 m/s, 0.66 m/s Peak Velocity: 0.85 m/s Peak Gradient: 2.95 mm[Hg], 3.46 mm[Hg], 2.65 mm[Hg], 2.65 mm[Hg] Right Atrium Right Atrium Systolic Pressure: 41.76 ml, 41.76 ml Dictated by: Yvette Beasley M.D. on 03/15/2023 at 16:34 Approved by: Yvette Beasley M.D. on 03/15/2023 at 16:37
--- NOTE | 2023-03-11 12:18 | PM.IMPN1 ---
Progress Note: A&P Assessment and Plan (1) Acute upper gastrointestinal bleeding: Assessment and Plan: P/w hemoptysis. Hb remained stable. EGD this am - shows multiple gastric ulcers. Pathology/biopsy pending. No evidence of active bleeding on EGD Patient switched to PO Omperazole q12. Likely due to excessive NSAIDS use. (2) Gastric ulcer: Assessment and Plan: likely due to NSAIDS use. Started on PO Omeprazole q12 (3) New onset a-fib: Assessment and Plan: New onset afib with RVR. Received 2 Pushes of IV lopressor and then one IV Cardizem. Will start on IV cardizem drip 2D ECHO ordered. Ordered labs to ensure electrolytes are ok. Will transfer to ICU for Afib with RVR and IV cardizem drip Started on PO lopressor 25 q12 (4) Chest pain: Assessment and Plan: Brief episode of Chest discomfort. Resolved with SL nitro. likely due to Rapid afib. Trend troponins. 2D ECHO ordered. Patient is on tele. (5) Lumbar strain: Assessment and Plan: Reasonably controlled. Unchanged. Qualifiers: Encounter type: subsequent encounter Qualified Code(s): S39.012D - Strain of muscle, fascia and tendon of lower back, subsequent encounter Internal Medicine - PN: Subj Subjective Interval history: Seen and examined. Patient was seen after he returned from OR. I was informed by Anesthesia that patient went into Afib with RVR in PACU with HR in 140-150. Initially patient denied any symptoms but later on reported mild chest discomfort that resolved with SL nitroglycerin. He denies previous hx of Afib and currently has no complaints to offer Exam Constitutional Vital Signs, click to edit/add: Last Vital Signs Temp 98.3 F 03/11/23 11:01 Pulse 112 H 03/11/23 11:48 Resp 16 03/11/23 11:48 BP 115/67 03/11/23 11:48 Pulse Ox 94 L 03/11/23 11:54 O2 Del Method Nasal Cannula 03/11/23 11:48 O2 Flow Rate 1 03/11/23 11:48 Documenting provider has reviewed patient's vital signs: yes Common normals: no apparent distress and oriented x3 General appearance: cooperative HENMT Common normals: normocephalic and head/scalp atraumatic Head and scalp: normocephalic and atraumatic Eye Common normals: conjunctivae normal and no scleral icterus Conjunctiva: conjunctiva(e) normal Respiratory Common normals: normal respiratory effort and clear to auscultation bilaterally Effort & inspection: able to speak in complete sentences Auscultation: clear to auscultation bilaterally Cardio Common normals: S1 normal heart sound and S2 normal heart sound Rate: tachycardic Rhythm: abnormal rhythm Heart sounds: S1 normal and S2 normal GI Common normals: Normal to inspection, nondistended, normoactive bowel sounds present, soft to palpation, non-tender and no hepatosplenomegaly Palpation: soft and no hepatosplenomegaly Extremity Common normals: no clubbing, cyanosis or edema Neuro Common normals: oriented x3, moves all extremities and no focal motor deficits Psych Common normals: mental status grossly normal, denies hallucinations, denies homicidal ideation and denies suicidal ideation Internal Medicine - PN: Obj Da Labs Labs: Laboratory Results - last 24 hr 03/10/23 03/10/23 03/10/23 08:17 12:07 16:20 Hgb 13.5 L 13.3 L Hct 41.3 L 41.3 L Troponin I High Sens TSH H. pylori IgG Antibody 0.14 03/10/23 03/11/23 03/11/23 20:02 00:50 04:15 Hgb 13.1 L 12.7 L 12.9 L Hct 40.9 L 39.6 L 39.6 L Troponin I High Sens TSH H. pylori IgG Antibody 03/11/23 03/11/23 08:08 10:20 Hgb 13.3 L Hct 40.6 L Troponin I High Sens 6.2 TSH 2.261 H. pylori IgG Antibody
[2023-03-11 12:25] LABS: Hemoglobin 13.3 g/dL (14.0-18.0)
[2023-03-11] MEDS: dilTIAZem HCL 125 MG in 0.9 % SODIUM CHLORIDE 100 ML 10 MG IV (12:43)
[2023-03-11 13:02] LABS: Anion Gap 10.5; BUN Creatinine Ratio 18.3; Calcium 7.9 mg/dL (8.5-10.1); Carbon Dioxide 25.4 mmol/L (21.0-32.0); Chloride 108 mmol/L (98-107); Estimated GFR (African America >60 (>=60); Estimated GFR (Non-African Ame >60 (>=60); Glucose 90 mg/dL (74-106); Potassium 3.9 mmol/L (3.5-5.1); Sodium 140 mmol/L (136-145)
[2023-03-11] MEDS: BACLOFEN 10 MG TABLET PO ×2 (13:16→21:14)
[2023-03-11] MEDS: OXYCODONE HCL 5 MG TABLET PO ×2 (13:16→22:32)
--- NOTE | 2023-03-11 14:33 | ECG_ITS ---
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
--- NOTE | 2023-03-11 14:34 | PC.NURSE ---
Patient C/O #4 left chest pain without radiation. Chest pain unchanged with deep breath. EKG done per protocol. BP 95/68. Will continue to monitor
--- NOTE | 2023-03-11 14:39 | PC.NURSE ---
Patient states left chest pain gone. Resting with eyes closed. Will cont to monitor
[2023-03-11 15:30] LABS: Hematocrit 41.4 % (42.0-54.0); Hemoglobin 13.7 g/dL (14.0-18.0)
[2023-03-11 15:57] LABS: Troponin I High Sensitivity 7.8 pg/mL (4.0-76.1)
--- NOTE | 2023-03-11 17:30 | ECG_ITS ---
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
--- NOTE | 2023-03-11 17:37 | PC.NURSE ---
Patient converts to RSR at 1657. EKG done. Patient denies C/O at this time. Dr Izaguirre aware
[2023-03-11] MEDS: METOPROLOL TARTRATE 25 MG TABLET PO (20:41)
[2023-03-11] MEDS: SUCRALFATE 1 GM TABLET PO (20:42)
[2023-03-11] MEDS: LORAZEPAM 2 MG/ML 1 ML VIAL 0.5 MG IV (22:32)
[2023-03-12] VITALS (59 sets, daily range): BP systolic 121–140; BP diastolic 78–92; PULSE 75–113; RESP 1–28; TEMP 36.5–36.8; O2SAT 93
[2023-03-12] MEDS: MORPHINE SULFATE 2 MG/ML SYRINGE IV (03:25)
[2023-03-12] MEDS: LORAZEPAM 2 MG/ML 1 ML VIAL 0.5 MG IV (03:25)
[2023-03-12 05:00] LABS: Basophils Percent Auto 0.3 % (0.2-2.0); Eosinophils Absolute Auto 0.2 10^3/uL (0.0-0.7); Hematocrit 39.2 % (42.0-54.0); Immature Granulocytes Abs Auto 0.05 10^3/uL (0.00-0.03); Immature Granulocytes Pct Auto 0.5 % (0.0-0.5); Lymphocytes Absolute Auto 1.4 10^3/uL (1.2-3.8); Lymphocytes Percent Auto 14.5 % (20.5-60.0); Mean Corpuscular HGB Conc 33.2 g/dL (29.9-35.2); Mean Corpuscular Hemoglobin 30.6 pg (25.9-34.0); Mean Corpuscular Volume 92.2 fL (80.0-94.0); Mean Platelet Volume 9.2 fL (9.5-13.5); Monocytes Absolute Auto 1.1 10^3/uL (0.3-0.8); Monocytes Percent Auto 11.4 % (1.7-12.0); Neutrophils Percent Auto 71.3 % (43.0-75.0); Platelet Count 178 10^3/uL (150-450); Red Blood Count 4.25 10^6/uL (4.70-6.10); Red Cell Distribution Width 12.7 % (11.0-15.0); White Blood Count 9.9 10^3/uL (4.0-11.0)
[2023-03-12] MEDS: OXYCODONE HCL 5 MG TABLET PO ×2 (05:00→13:16)
[2023-03-12 05:17] LABS: Alanine Aminotransferase 21 U/L (16-63); Albumin Globulin Ratio 0.9; Albumin Level 2.8 g/dL (3.4-5.0); Alkaline Phosphatase 41 U/L (46-116); Anion Gap 11.4; Aspartate Amino Transferase 10 U/L (15-37); BUN Creatinine Ratio 22.4; Bilirubin Total 0.6 mg/dL (0.2-1.0); Calcium 7.9 mg/dL (8.5-10.1); Carbon Dioxide 25.2 mmol/L (21.0-32.0); Chloride 107 mmol/L (98-107); Estimated GFR (African America >60 (>=60); Estimated GFR (Non-African Ame >60 (>=60); Globulin 3.2 g/dL; Glucose 97 mg/dL (74-106); Potassium 3.6 mmol/L (3.5-5.1); Sodium 140 mmol/L (136-145)
[2023-03-12] MEDS: BACLOFEN 10 MG TABLET PO ×2 (05:47→13:17)
[2023-03-12] MEDS: SUCRALFATE 1 GM TABLET PO ×2 (07:19→13:16)
[2023-03-12] MEDS: OMEPRAZOLE 40 MG CAPSULE.DR PO (08:59)
[2023-03-12] MEDS: METOPROLOL TARTRATE 25 MG TABLET PO (08:59)
[2023-03-12] MEDS: POTASSIUM CHLORIDE 10 MEQ ER TABLET 40 MEQ PO (08:59)
--- NOTE | 2023-03-12 10:23 | CM.NOTE ---
Rounds made with Dr. Nunes, discussed further testing (echo) to be completed today. Possible discharge this afternoon.
--- NOTE | 2023-03-12 11:31 | P.DS_ITS ---
DS: Providers Provider Date of admission: 03/09/23 21:46 Primary care physician: Non-Staff PhysicianMD Consults: 03/10/23 Consult to General Surgeon Routine Consulting Provider: Shay Lane Reason for consultation: upper GI bleed Has provider been notified: Yes Attending physician on discharge: Shaikh Des Discharging clinician: Shaikh Des DS: Diagnosis Discharge Diagnosis (1) Acute upper gastrointestinal bleeding: Assessment and plan: Presented with hematemesis. Hb remained stable and did not required blood tx. EGD showed multiple gastric ulcers likely due to NSAIDS use. Patient educated on avoiding alcohol intake, use of NSAIDS and will go home on PO Omeprazole and carafate. (2) Gastric ulcer: Assessment and plan: likely due to NSAIDS. H.pylori testing is pending (3) New onset a-fib: Assessment and plan: Reverted to NSR. Had to transfer to ICU for cardizem drip. Patient is unfortunately not a good candidate for stroke px with recent UGIB and gastric ulcers. Will d/c on oral Lopressor. Patient will need outpatient f/u with PCP/Cardiology. He might have to undergo Watchmann to protect/reduce risk of thromboembolic stroke with Afib. 2D ECHO shows (4) Chest pain: Assessment and plan: Likely due to Afib with RVR. Resolved. Trop x 3 negative. Will benefit from outpatient Stress test. ` (5) Lumbar strain: Assessment and plan: Improved with use of baclofen. Qualifiers: Encounter type: subsequent encounter Qualified Code(s): S39.012D - Strain of muscle, fascia and tendon of lower back, subsequent encounter DS: Summary Hospital Course Hospital Course: Patient admitted for hematemesis. No episode while in the hospital. Hb remained stable. Did not require tx. Patient underwent EGD - that showed multiple gastric ulcers. Suspect PUD is due to longstanding hx of NSAIDS use for his back pain. Patient educated and advised to avoid alcohol use, NSAIDS use in the future. While in PACU - he developed Afib with RVR for which he was initially given IV lopressor and cardizem pushes but eventually required continuous IV cardizem infusion. Reverted to NSR. He also complained of mild chest discomfort when he was in Afib and it resolved with one SL nitro. 2D ECHO ordered to assess cardiac structure showed Patient medically stable for discharge. He will need outpatient Cardiology F/U for new onset Afib. Status at Discharge Functional status at discharge: independent ambulation Overall status at discharge: patient is back to baseline Time Spent with Patient Time attestation: Total time spent providing and/or coordinating discharge services: Time spent: greater than 30 minutes Exam Constitutional Vital Signs, click to edit/add: Last Vital Signs Temp 98.3 F 03/12/23 04:30 Pulse 90 03/12/23 10:00 Resp 23 03/12/23 07:22 BP 131/78 03/12/23 07:22 Pulse Ox 93 L 03/12/23 07:22 O2 Del Method Room Air 03/11/23 12:41 O2 Flow Rate 1 03/11/23 11:48 Documenting provider has reviewed patient's vital signs: yes Common normals: no apparent distress and oriented x3 General appearance: cooperative HENMT Common normals: normocephalic and head/scalp atraumatic Head and scalp: normocephalic and atraumatic Eye Common normals: conjunctivae normal and no scleral icterus Conjunctiva: conjunctiva(e) normal Respiratory Common normals: normal respiratory effort and clear to auscultation bilaterally Effort & inspection: able to speak in complete sentences Auscultation: clear to auscultation bilaterally Cardio Common normals: no JVD, regular rate, regular rhythm, S1 normal heart sound and S2 normal heart sound GI Common normals: Normal to inspection, nondistended, normoactive bowel sounds present, soft to palpation, non-tender and no hepatosplenomegaly Palpation: soft and no hepatosplenomegaly Extremity Common normals: no clubbing, cyanosis or edema Neuro Common normals: oriented x3, moves all extremities and no focal motor deficits Psych Common normals: mental status grossly normal, denies hallucinations, denies homicidal ideation and denies suicidal ideation DS: Data Data Completed and Pending Labs on day of discharge: Labs from last 24 hours 03/12/23 03/11/23 03/11/23 04:16 19:04 15:21 WBC 9.9 RBC 4.25 L Hgb 13.0 L 13.7 L Hct 39.2 L 41.4 L MCV 92.2 MCH 30.6 MCHC 33.2 RDW 12.7 Plt Count 178 MPV 9.2 L Neut % (Auto) 71.3 Lymph % (Auto) 14.5 L Weakley % (Auto) 11.4 Eos % (Auto) 2.0 Baso % (Auto) 0.3 Neut # (Auto) 7.0 H Lymph # (Auto) 1.4 Weakley # (Auto) 1.1 H Eos # (Auto) 0.2 Baso # (Auto) 0.0 Abs Immat Gran (auto) 0.05 H Imm/Tot Granulo (auto) 0.5 Sodium 140 Potassium 3.6 Chloride 107 Carbon Dioxide 25.2 Anion Gap 11.4 BUN 19.0 H Creatinine 0.85 Est GFR ( Amer) >60 Est GFR (Non-Af Amer) >60 BUN/Creatinine Ratio 22.4 Glucose 97 Calcium 7.9 L Total Bilirubin 0.6 AST 10 L ALT 21 Alkaline Phosphatase 41 L Troponin I High Sens 6.0 7.8 Total Protein 6.0 L Albumin 2.8 L Globulin 3.2 Albumin/Globulin Ratio 0.9 03/11/23 03/11/23 12:35 12:10 WBC RBC Hgb 13.3 L Hct 40.0 L MCV MCH MCHC RDW Plt Count MPV Neut % (Auto) Lymph % (Auto) Weakley % (Auto) Eos % (Auto) Baso % (Auto) Neut # (Auto) Lymph # (Auto) Weakley # (Auto) Eos # (Auto) Baso # (Auto) Abs Immat Gran (auto) Imm/Tot Granulo (auto) Sodium 140 Potassium 3.9 Chloride 108 H Carbon Dioxide 25.4 Anion Gap 10.5 BUN 15.0 Creatinine 0.82 Est GFR ( Amer) >60 Est GFR (Non-Af Amer) >60 BUN/Creatinine Ratio 18.3 Glucose 90 Calcium 7.9 L Total Bilirubin AST ALT Alkaline Phosphatase Troponin I High Sens Total Protein Albumin Globulin Albumin/Globulin Ratio Discharge Plan Discharge Disposition: Home, Self-Care Discharge Medications: New omeprazole 40 mg capsule,delayed release(DR/EC) 40 mg PO DAILY Qty: 30 0RF metoprolol tartrate 25 mg tablet 25 mg PO BID Qty: 60 0RF baclofen 10 mg tablet 10 mg PO Q8H Qty: 60 0RF Continued oxycodone-acetaminophen [Percocet] 5-325 mg tablet 1 tab PO Q6H PRN (Reason: pain) Qty: 20 0RF Discontinued ibuprofen 800 mg tablet 800 mg PO Q8H PRN (Reason: pain) Qty: 20 0RF ondansetron 4 mg tablet,disintegrating 4 mg PO Q6H PRN (Reason: nausea and vomiting) Qty: 20 0RF No Action No Known Home Medications Activity: increase activity as tolerated and resume usual activities as tolerated Diet: advance to your usual diet Forms: Portal Instructions Follow Up Appointments: F/u with PCP in one week F/u with Cardiology in 1-2 week
[2023-03-13 08:14] LABS: H Pylori Tissue, Urease Negative
--- NOTE | 2023-03-13 13:51 | PC.NURSE ---
Patient recovered in ENDO by writing RN until 0916 AM when he was wheeled back to his med surg room. Patient was sinus then went into A Fib. Doctors are aware. Dr. Aguilar spoke with Dr. Cárdenas for a cardiac consult. Report given to Kenji Law RN on [facility]. Kenji Law made aware patient in a fib and results of EGD. Patient awake and talking upon arrival back to med surg room.
--- NOTE | 2023-03-13 15:38 | CM.DCFOLLOWU ---
Person spoke with: patient How are you feeling?moving slowly, some pain, taking it easy but making sure to move around as well How is your pain? little pain Did you understand your discharge instructions? yes Do you have any questions about your discharge instructions? no Were you given any prescriptions at discharge? yes Were you able to get your prescriptions filled? yes Do you understand how to take your medications as ordered? yes Do you have any questions about your follow up appointment and do you plan to keep your follow up appointment? no questions about follow up, follow up is Sunday with Dr. Xavier. Had questions about FMLA, advised patient to call Dr. Xavier's office to see if they can fill out paperwork Is there anything else that you would like to discuss? no Questions/Comments/Concerns/Other:
== END 2023-03-12 13:45 | disposition home or self-care (01) | DRG 378 ==
LOC: ER 21:49 → MS 22:06 → ICU 03-11 13:04
PROVIDERS: Family Medicine; Internal Medicine; Surgery; Admitting Provider Internal Medicine; Emergency Provider Internal Medicine; Visit Provider Internal Medicine
PROC: 0DB68ZX Excision of Stomach, Via Natural or Artificial Opening Endoscopic, Diagnostic (ICD-10-PCS; principal; 2023-03-11 08:30)
DX: K25.4 Chronic or unspecified gastric ulcer with hemorrhage (principal); D62 Acute posthemorrhagic anemia; E87.1 Hypo-osmolality and hyponatremia; K22.10 Ulcer of esophagus without bleeding; T39.315A Adverse effect of propionic acid derivatives, initial encounter; K44.9 Diaphragmatic hernia without obstruction or gangrene; I48.91 Unspecified atrial fibrillation; D72.829 Elevated white blood cell count, unspecified; S39.012D Strain of muscle, fascia and tendon of lower back, subsequent encounter; Z79.899 Other long term (current) drug therapy; Z79.1 Long term (current) use of non-steroidal anti-inflammatories (NSAID); Z88.0 Allergy status to penicillin; Z83.3 Family history of diabetes mellitus
CPT/HCPCS: 36415; 74018; 80048; 80053; 83605; 84443; 84484; 85014; 85018; 85025; 85610; 85730; 86677; 87077; 88305; 88312; 88342; 93005; 93306; 96361; 96374; 96375; 96376; 99285; J2704

== ENCOUNTER 2024-07-02 15:47 | Outpatient (OUT) | payer OTHER, SELFPAY ==
--- NOTE | 2024-07-02 | XR_ITS ---
The [address] [address] Patient Name: MARIAM LEE MRN: [id number] date: 1960 Sex: M Assigned Patient Location: [facility] Current Patient Location: Accession/Order Number: [id number] Exam Date: 07/02/2024 16:08 Report Date: 07/03/2024 07:14 At the request of: NON-STAFF PHYSICIAN Procedure: XR finger RT min 2V PROCEDURE: XR finger RT min 2V, XR hand RT min 3V COMPARISON: None. HISTORY: Right thumb pain FINDINGS: BONES:No acute fracture or dislocation. Degenerative changes with joint space narrowing marginal osteophyte formation . 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 No visible soft tissue swelling. EFFUSION:None visible. OTHER: Negative. XR/XR finger RT min 2V IMPRESSION: Mild osteoarthritis Electronically authenticated by: SADIA VALDERRAMA Date: 07/03/2024 07:14
--- NOTE | 2024-07-02 | XR_ITS ---
The [address] [address] Patient Name: MARIAM LEE MRN: [id number] date: 1960 Sex: M Assigned Patient Location: [facility] Current Patient Location: Accession/Order Number: [id number] Exam Date: 07/02/2024 16:08 Report Date: 07/03/2024 07:14 At the request of: NON-STAFF PHYSICIAN Procedure: XR hand RT min 3V PROCEDURE: XR finger RT min 2V, XR hand RT min 3V COMPARISON: None. HISTORY: Right thumb pain FINDINGS: BONES:No acute fracture or dislocation. Degenerative changes with joint space narrowing marginal osteophyte formation . 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 No visible soft tissue swelling. EFFUSION:None visible. OTHER: Negative. XR/XR hand RT min 3V IMPRESSION: Mild osteoarthritis Electronically authenticated by: SADIA VALDERRAMA Date: 07/03/2024 07:14
== END 2024-07-02 15:48 | disposition home or self-care (01) ==
LOC: RAD 15:52
PROVIDERS: PCP Orthopaedic Surgery
DX: M79.644 Pain in right finger(s) (principal); M79.641 Pain in right hand; M19.041 Primary osteoarthritis, right hand
CPT/HCPCS: 73130; 73140

== ENCOUNTER 2024-08-04 11:02 | Day surgery (SDC) | payer OTHER, SELFPAY ==
--- OUTSIDE RECORDS SUMMARY | 2024-08-04 11:16 | XMS_ITS | CCD ---
Author Organization [facility] Care Team Providers Care Learning Center Coordinator Name Role Phone KARIN, DR IYER Admitting Unavailable NILL, DR IYER Attending Unavailable MELGAR, DR TETE Oswald Primary Care Unavailable NILL, DR IYER Consulting Unavailable MELGAR, DR TETE Oswald Admitting Unavailable MELGAR, DR TETE Oswald Attending Unavailable MELGAR, DR TETE Oswald Primary Care Unavailable MELGAR, DR TETE Oswald Consulting Unavailable MELGAR, DR TETE Oswald Admitting Unavailable MELGAR, DR TETE Oswald Attending Unavailable MELGAR, DR TETE Oswald Primary Care Unavailable MELGAR, DR TETE Oswald Consulting Unavailable NILL, DR IYER Admitting Unavailable NILL, DR IYER Attending Unavailable MELGAR, DR TETE Oswald Primary Care Unavailable NILL, DR IYER Consulting Unavailable DIXIEKOSKIECLEMENTE Consulting Unavailable Pablo, Inocencia Claros Primary Care Physician [phone] AMY NICHOLE Attending Unavailable WOODYTAMMY Attending Unavailable Pablo, Inocencia Claros Attending Unavailable Pablo, Inocencia Claros Attending Unavailable Pablo, Inocencia Claros Attending Unavailable Pablo, Inocencia Claros Admitting Unavailable Pablo, Inocencia Claros Admitting Unavailable SarminiLeigha Attending Unavaila ble Pablo, Inocencia Claros Attending Unavailable Pablo, Inocencia Claros Attending Unavailable Pablo, Inocencia Claros Attending Unavailable Allergies Allergy Classification Reported Allergen(s) Allergy Type Date of Onset Reaction(s) Facility (2 sources) Penicillins; Translations: [PENICILLINS] Drug allergy (disorder) 6 [facility] Repository (4 sources) Penicillin; Translations: [penicillin] Drug Allergy Unknown (qualifier value) [facility] [place] (1 source) ALLERGIES NOT ON FILE; Translations: [ALLERGIES NOT ON FILE] Propensity to adverse reactions (disorder) [facility] Repository Medications Current Medications Medication Drug Class(es) Dates Sig (Normalized) Sig (Original) clindamycin 300 mg oral capsule (1 source) Lincosamide Antibacterial Start: 10-24-2023 take 1 capsule by mouth twice daily clindamycin 300 mg oral cap 300 mg = 1 cap(s), Oral, BID, # 20 cap(s), Refills(s) 0, [id number] 175, cm, 10/24/23 17:35:00 EDT, Height/Length Dosing, 102.4, kg, 10/24/23 17:38:00 EDT, Weight Dosing Start Date: 10/24/23 Status: Ordered methylPREDNISolone 4 mg oral tablet (1 source) Corticosteroid Start: 03-15-2023 End: 03-21-2023 Medrol 4 mg Tab = 1 packet(s), Oral, As Directed, as directed on package labeling, X 6 day(s), # 21 tab(s), Refills(s) 0, [id number] 175, cm, 03/15/23 11:14:00 EDT, Height/Length Dosing, 94.4, kg, 03/15/23 11:14:00 EDT, Weight Dosing Start Date: 03/15/23 Stop Date: 03/21/23 Status: Ordered metoprolol tartrate 25 mg oral tablet (2 sources) beta-Adrenergic Dylon Start: 04-05-2023 take 1 tablet by mouth twice daily Metoprolol tartrate 25 mg Tab 25 mg = 1 tab(s), Oral, BID, # 180 tab(s), Refills(s) 1, [id number] 175, cm, 03/22/23 10:56:00 EDT, Height/Length Dosing, 95.2, kg, 03/22/23 10:56:00 EDT, Weight Dosing Start Date: 04/05/23 Status: Ordered Start: 03-14-2023 take 1 tablet by deshawn th twice daily Metoprolol tartrate 25 mg Tab 25 mg = 1 tab(s), Oral, BID, Refills(s) 0 Start Date: 03/14/23 Status: Ordered omeprazole 40 mg delayed release oral capsule (3 sources) Proton Pump Inhibitor Start: 04-05-2023 take 1 capsule by mouth once daily omeprazole 40 mg Cap-DR 40 mg = 1 cap(s), Oral, Daily, # 90 cap(s), Refills(s) 3, Pharmacy: [facility]/pharmacy #[id number], 175, cm, 03/22/23 10:56:00 EDT, Height/Length Dosing, 95.2, kg, 03/22/23 10:56:00 EDT, Weight Dosing Start Date: 04/05/23 Status: Ordered Start: 03-14-2023 take 1 capsule by mo uth once daily omeprazole 40 mg Cap-DR 40 mg = 1 cap(s), Oral, Daily, Refills(s) 0 Start Date: 03/14/23 Status: Ordered tiZANidine 4 mg oral capsule (2 sources) Central alpha-2 Adrenergic Agonist Start: 05-28-2023 take 1 capsule by mouth three times daily tizanidine 4 mg oral capsule 4 mg = 1 cap(s), Oral, TID, # 270 cap(s), Refills(s) 1, Pharmacy: [facility]/pharmacy #[id number], 175, cm, 05/01/23 13:19:00 EST, Height/Length Dosing, 96, kg, 05/01/23 13:19:00 EST, Weight Dosing Start Date: 05/28/23 Status: Ordered Completed/Discontinued Medications Medication Drug Class(es) Dates Sig (Normalized) Sig (Original) acetaminophen 325 mg / oxyCODONE hydrochloride 5 mg oral tablet (2 sources) Opioid Agonist Start: 03-15-2023 take 1 tablet by mouth every six hours as needed for pain acetaminophen-oxycod one 325 mg-5 mg Tab Refill(s) 0, 20 EA, TAKE 1 TABLET BY MOUTH EVERY 6 HOURS NEEDED FOR PAIN Start Date: 03/15/23 Status: Ordered cyclobenzaprine hydrochloride 10 mg oral tablet (1 source) Muscle Relaxant Start: 03-15-2023 take 1 tablet by mouth three times daily as needed cyclobenzaprine 10 mg Tab 20 EA, TAKE 1 TABLET BY MOUTH 3 TIMES A DAY NEEDED FOR MUSCLE SPAMS, Refills(s) 0 Start Date: 03/15/23 Status: Ordered Problems Problem Classification Problem Date Documented Da te Episodic/Chronic Cardiac dysrhythmias (5 sources) Atrial fibrillation; Translations: [Paroxysmal atrial fibrillation] Onset: 03-20-2023 03-15-2023 Chronic Conditions associated with dizziness or vertigo (3 sources) Meniere's disease 05-23-2021 Chronic Esophageal disorders (4 sources) Gastro-esophageal reflux disease without esophagitis; Translations: [Gastroesophageal reflux disease] Onset: 06-14-2021 05-23-2021 Chronic Gastroduodenal ulcer (except hemorrhage) (4 sources) Gastric ulcer; Translations: [Gastric ulcer, unspecified as acute or chronic, without hemorrhage or perforation] Onset: 08-22-2023 03-15-2023 Chronic Headache; including migraine (3 sources) Migraine 05-23-2021 Chronic Other nutritional; endocrine; and metabolic disorders (3 sources) Body mass index 30+ - obesity 05-25-2021 Chronic Other screening for suspected conditions (not mental disorders or infectious disease) (5 sources) Encounter for screening for malignant neoplasm of prostate; Translations: [Encounter for screening for malignant neoplasm of colon] Onset: 06-08-2021 Episodic Other skin disorders (1 source) Ingrowing nail 10-24-2023 Episodic Other upper respiratory infections (2 sources) Sinusitis 05-01-2023 Chronic Otitis media and related conditions (2 sources) Otitis media 05-01-2023 Episodic Skin and subcutaneous tissue infections (1 source) Infection of toe 10-24-2023 Episodic Spondylosis; intervertebral disc disorders; other back problems (3 sources) Spasm of back muscles 03-15-2023 Episodic Unclassified (1 source) CONTACT W/AND (SUSP) EXPOS COVID-19; Translations: [CONTACT W/AND (SUSP) EXPOS COVID-19] Onset: 06-10-2021 Unclassified (3 sources) Patient encounter status 05-25-2021 Unclassified (2 sources) Severe acute respiratory syndrome coronavirus 2 detected 07-30-2023 Results Test Name Value Interpretation Reference Range Facility Insurance Correspondenceon 0 12-03-2023 Insurance Correspondence [id number] 00TIFF Normal [facility] Physician Referralon 024 Physician Referral [id number]#[id number] 0TIFF Normal [facility] Medicine Office/Clini c Noteon 10-25-2023 Family Medicine Office/Clinic Note HPI Staff Mariam is a 62 year old male presenting for acute visit pt states his toenails are thick and painful pt has been soaking toes applying peroxide, Hoang and covering with Band-Aid has never seen teller coordinator Onset 02/2023 Back pain Pt states his middle back continues to have intermittent aching pain. denies any radiculopathy History of Present Illness pt c/o right big toenail is red swollen and painful. toe nails are thick and yellow Review of Systems PHQ Score Initial Depression Screen Score: 0 SCORE Physical Exam Vitals & Measurements HR: 82(Peripheral) RR: 18 BP: 126/80 SpO2: 99% HT: 69 in HT: 175.0 cm WT: 102.4 kg WT: 225.28 lb BMI: 33.44 General: alert, no acute distress ENMT: oral mucosa moist, no pharyngeal erythema or exudate Cardiovascular: regular rate and rhythm, normal peripheral perfusion Respiratory: Lungs CTA, respirations non labored Extremities: no deformity, no trauma Neurological: oriented x 4, LOC appropriate for age, CN II-XII intact, motor strength equal & normal bilaterally, speech normalr right inner corner of big toenail is ingrown and now infected, red, swollen and painful, toenails are thick and yellow Assessment/Plan 1. Ingrown nail (L60.0: Ingrowing nail) right great toe inner corner is ingrown and now infected from pt digging at it. will order antibiotic and send referral to Dr. Aguila. Ordered: clindamycin, 300 mg = 1 cap(s), Oral, BID, # 20 cap(s), Refills(s) 0, Pharmacy: [facility]/pharmacy #[id number], 175, cm, 10/24/23 17:35:00 EDT, Height/Length Dosing, 102.4, kg, 10/24/23 17:38:00 EDT, Weight Dosing [facility] Ambulatory Referral 2. Infected nailbed of toe (L03.039: Cellulitis of unspecified toe) see above Ordered: clindamycin, 300 mg = 1 cap(s), Oral, BID, # 20 cap(s), Refills(s) 0, Pharmacy: [facility]/pharmacy #[id number], 175, cm, 10/24/23 17:35:00 EDT, Height/Length Dosing, 102.4, kg, 10/24/23 17:38:00 EDT, Weight Dosing [facility] Ambulatory Referral 3. Non-smoker (Z78.9: Other specified health status) continue not smoking Ordered: clindamycin, 300 mg = 1 cap(s), Oral, BID, # 20 cap(s), Refills(s) 0, [id number] 175, cm, 10/24/23 17:35:00 EDT, Height/Length Dosing, 102.4, kg, 10/24/23 17:38:00 EDT, Weight Dosing 4. BMI 33.0-33.9,adult (Z68.33: Body mass index [BMI] 33.0-33.9, adult) BMI education complete Ordered: clindamycin, 300 mg = 1 cap(s), Oral, BID, # 20 cap(s), Refills(s) 0, [id number] 175, cm, 10/24/23 17:35:00 EDT, Height/Length Dosing, 102.4, kg, 10/24/23 17:38:00 EDT, Weight Dosing Orders: metoprolol, 25 mg = 1 tab(s), Oral, BID, # 180 tab(s), Refills(s) 1, [id number] 175, cm, 03/22/23 10:56:00 EDT, Height/Length Dosing, 95.2, kg, 03/22/23 10:56:00 EDT, Weight Dosing Follow-up No qualifying data available Problem List/Past Medical History Ongoing Atrial fibrillation Back muscle spasm BMI 30.0-30.9,adult COVID-19 virus detected GERD (gastroesophageal reflux disease) Infected nailbed of toe Ingrown nail Meniere's disease Migraine headache Otitis media of both ears Screening for malignant neoplasm of colon Sinusitis Stomach ulcer Historical No qualifying data Procedure/Surgical History Appendectomy, Cystoscopy, Labyrinthectomy. Medications clindamycin 300 mg oral cap, 300 mg= 1 cap(s), Oral, BID omeprazole 40 mg Cap-DR, 40 mg= 1 cap(s), Oral, Daily, 3 refills tizanidine 4 mg oral capsule, 4 mg= 1 cap(s), Oral, TID, 1 refills Allergies penicillin (Unknown) Social History Alcohol Current, Beer, Daily, 08/23/2023 Substance Abuse - Denies Substance Abuse, 05/25/2021 Tobacco Never (less than 100 in lifetime) Tobacco Use:. Never Smokeless Tobacco Use:. Household tobacco concerns: No., 10/24/2023 Family History Cardiac arrest: Mother and Father. Diabetes mellitus type 2: Mother. Immunizations Vaccine Date Status Comments influenza virus vaccine, inactivated - Not Given Patient Refuses SARS-CoV-2 mRNA (tozinameran 5y-11y) vac - Not Given Postpone due to refusal influenza virus vaccine, inactivated - Not Given Postpone due to refusal SARS-CoV-2 (COVID-19) Ad26 vaccine 05/06/2021 Recorded Normal [facility] Comment on above: Result Comment: Elec tronically Signed By: Inocencia Bravo\.br\Date and Time Signed: 10/25/23 10:22 EDT Ambulatory Visit Summaryon 0 10-24-2023 Ambulatory Visit Summary MARIAM ADDISON :1960 Visit Date:10/24/2023 Ambulatory Visit Instructions Your Diagnosis BMI 33.0-33.9,adult Non-smoker Ingrown nail Infected nailbed of toe Your Care Team Attending Physician - Inocencia Bravo Primary Care Physician - Inocencia Bravo This Is Your Medications List clindamycin (clindamycin 300 mg oral cap) omeprazole (omeprazole 40 mg Cap-DR) tizanidine (tizanidine 4 mg oral capsule) Procedures Performed Appendectomy, Cystoscopy, Labyrinthectomy. Discharge Vitals Heart Rate (Peripheral) 82 Respiratory Rate 18 Blood Pressure 126/80 Height 175.0 cm Height 69 in Weight 102.4 kg Weight 225.28 lb BMI 33.44 What to do next Scheduled Follow-Up Appointments 2023 10:45 AM EDT Where: [facility] Someone Will Contact You Regarding These Appointments [facility]ulatory Referral, Podiatry, Dr. catalino Benito, 10/24/23 17:47:00 EDT, Ingrown nail [facility] Consent for Procedure/Surger yon 08-24-2023 Consent for Procedure/Surgery [id number] 0TIFF [facility] Ambulatory Visit Summaryon 0 08-23-2023 Ambulatory Visit Summary MARIAM ADDISON :1960 Visit Date:08/23/2023 Ambulatory Visit Instructions Your Diagnosis Stomach ulcer Your Care Team Attending Physician - Fernanda MCGEE, Leigha Rose Primary Care Physician - Inocencia Bravo This Is Your Medications List Contact prescribing physician if questions or concerns acetaminophen-oxycodon e (acetaminophen-oxycodo ne 325 mg-5 mg Tab) metoprolol (Metoprolol tartrate 25 mg Tab) omeprazole (omeprazole 40 mg Cap-DR) tizanidine (tizanidine 4 mg oral capsule) Procedures Performed Appendectomy, Cystoscopy, Labyrinthectomy. Discharge Vitals Heart Rate (Peripheral) 80 Respiratory Rate 18 Blood Pressure 124/88 Height 175 cm Height 69 in Weight 103 kg Weight 226.6 lb BMI 33.63 Medications What How Much When Why Instructions Unchanged acetaminophen-oxycodon e (acetaminophen-oxycodo ne 325 mg-5 mg Tab) 20 EA, TAKE 1 TABLET BY MOUTH EVERY 6 HOURS NEEDED FOR PAIN Contact prescribing physician if questions or concerns Unchanged metoprolol (Metoprolol tartrate 25 mg Tab) 1 Tablets By Mouth 2 times a day Contact prescribing physician if questions or concerns Unchanged omeprazole (omeprazole 40 mg Cap-DR) 1 Capsules By Mouth Every day Contact prescribing physician if questions or concerns Unchanged tizanidine (tizanidine 4 mg oral capsule) 1 Capsules By Mouth 3 times a day BMI 31.0-31.9,adult Non-smoker Contact prescribing physician if questions or concerns Medications and Immunizations Administered Not Given influenza virus vaccine, inactivated, Patient Refuses Allergies penicillin (Unknown) Problems Ongoing - Any problem that you are currently receiving treatment for. Atrial fibrillation Back muscle spasm BMI 30.0-30.9,adult COVID-19 virus detected GERD (gastroesophageal reflux disease) Meniere's disease Migraine headache Otitis media of both ears Screening for malignant neoplasm of colon Sinusitis Stomach ulcer Patient Survey You may receive a survey via text or e-mail asking about your office visit. Please share your experience with us by completing your survey. We appreciate your feedback and thank you for choosing us for your care. [facility] Gastroenterology Office/Clin ic Noteon 08-23-2023 Gastroenterology Office/Clinic Note Chief Complaint stomach ulcer HPI Staff Patient is a 62 year old male who was referred by Pablo for a bleeding stomach ulcer. Went to [place] ED 02/2023 for coffee ground emesis. GS consulted him while in ED, they did labs and H. pylori test (negative). Placed an NG tube. No EGD/Colonoscopy completed. Denies bloody emesis since ED visit. Denies family history of colon cancer/polyps. Denies personal history of colon cancer/polyps. Denies abdominal pain, constipation, diarrhea or bloody stools. This past week he had a few days of vomiting and diarrhea - no blood noted. Has chronic lumbar back pain. Denies anticoagulation therapy. Last colonoscopy 06/08/21 w/Dr. Chawla @ [place]: POSTOPERATIVE DIAGNOSIS:Normal colonoscopy to the cecum. Laboratory Results CBC Basophil Absolute: 0 E9/L (03/15/23) Basophil Auto: 0.4 % (03/15/23) Eos Absolute: 0.3 E9/L (03/15/23) Eos Auto: 3.6 % (03/15/23) Hct: 45.6 % (03/15/23) HGB: 15.3 gm/dL (03/15/23) Lymph Absolute: 1.2 E9/L (03/15/23) Lymph Auto: 15.5 % (03/15/23) MCH: 30.5 pg (03/15/23) MCHC: 33.6 gm/dL (03/15/23) MCV: 90.7 fL (03/15/23) Dane Absolute: 0.9 E9/L (03/15/23) Dane Auto: 11.2 % (03/15/23) MPV: 8 fL (03/15/23) Neutro Absolute: 5.4 E9/L (03/15/23) Neutro Auto: 69.3 % (03/15/23) Platelet: 241 E9/L (03/15/23) RBC: 5 E12/L (03/15/23) RDW: 13.1 % (03/15/23) WBC: 7.8 E9/L (03/15/23) History of Present Illness was havng blood pain, was given Ketoralac, then he developed he coughs after eating, not during Omeprazole eliminated that No melena or hematochezia Review of Systems PHQ Score Initial Depression Screen Score: 0 SCORE Physical Exam Vitals & Measurements HR: 80(Peripheral) RR: 18 BP: 124/88 HT: 69 in HT: 175 cm WT: 103 kg WT: 226.6 lb BMI: 33.63 General: in Nad Abdomen: Soft, NTND Assessment/Plan 1. Stomach ulcer (K25.9: Gastric ulcer, unspecified as acute or chronic, without hemorrhage or perforation) He likely had silent acid reflux presented with coughing after eating, that went away after he started taking omeprazole He also has coffee-ground emesis when he presented to [place], hemoglobin remained normal And he was taken NSAIDs at that time for back pain which he stopped Will proceed with EGD, will need to rule out also Quintanilla's esophagus Continue PPI Discussed lifestyle modifications for GERD Follow-up No qualifying data available Problem List/Past Medical History Ongoing Atrial fibrillation Back muscle spasm BMI 30.0-30.9,adult COVID-19 virus detected GERD (gastroesophageal reflux disease) Meniere's disease Migraine headache Otitis media of both ears Screening for malignant neoplasm of colon Sinusitis Stomach ulcer Historical No qualifying data Procedure/Surgical History Appendectomy, Cystoscopy, Labyrinthectomy. Medications acetaminophen-oxycodon e 325 mg-5 mg Tab, Not taking Metoprolol tartrate 25 mg Tab, 25 mg= 1 tab(s), Oral, BID, 1 refills, Not taking omeprazole 40 mg Cap-DR, 40 mg= 1 cap(s), Oral, Daily, 3 refills tizanidine 4 mg oral capsule, 4 mg= 1 cap(s), Oral, TID, 1 refills Allergies penicillin (Unknown) Social History Alcohol Current, Beer, Daily, 08/23/2023 Substance Abuse - Denies Substance Abuse, 05/25/2021 Tobacco Never (less than 100 in lifetime) Tobacco Use:. Never Smokeless Tobacco Use:. Household tobacco concerns: No., 08/23/2023 Family History Cardiac arrest: Mother and Father. Diabetes mellitus type 2: Mother. Immunizations Vaccine Date Status Comments influenza virus vaccine, inactivated - Not Given Patient Refuses SARS-CoV-2 mRNA (heide 5y-11y) vac - Not Given Postpone due to refusal influenza virus vaccine, inactivated - Not Given Postpone due to refusal SARS-CoV-2 (COVID-19) Ad26 vaccine 05/06/2021 Recorded Normal [facility] Comment on above: Result Comment: Elec tronically Signed By: Fernanda MCGEE, Leigha Rose\.br\Date and Time Signed: 08/23/23 14:48 EST Ambulatory Visit Summaryon 0 07-30-2023 Ambulatory Visit Summary MARIAM ADDISON :1960 Visit Date:07/30/2023 Ambulatory Visit Instructions Your Diagnosis COVID-19 virus detected Your Care Team Attending Physician - Inocencia Bravo Primary Care Physician - Inocencia Bravo This Is Your Medications List acetaminophen-oxycodon e (acetaminophen-oxycodo ne 325 mg-5 mg Tab) azithromycin (azithromycin 250 mg Tab) benzonatate (benzonatate 200 mg oral capsule) methylPREDNISolone (Medrol 4 mg Tab) metoprolol (Metoprolol tartrate 25 mg Tab) omeprazole (omeprazole 40 mg Cap-DR) tizanidine (tizanidine 4 mg oral capsule) Procedures Performed Appendectomy, Cystoscopy, Labyrinthectomy. What to do next Scheduled Follow-Up Appointments 2023 2:00 PM EST With: Fernanda MCGEE, Leigha Rose Where: [facility] Provider Letteron 06-04-2023 Provider Letter June 04, 2023 MARIAM ADDISON [address] [place] [address] : 1960 Dear Mariam , We have been trying to reach you with no success. It is important that you return our call regarding your referral for a consultation at our office from [place] upon receiving this letter. Also, at the time of your call, please provide us with your current information. Thank you for your prompt attention to this matter. Sincerely, [facility] [phone] [facility] Office Visiton 05-08-2023 Follow-up visit [id number] Marcela Addison 1960 M Date Provider Department Center 05/08/2023 Myrna6-AMY NICHOLE [facility] No family history on file Level of Service:04045 [place] OFFICE/OUTPATIENT ESTABLISHED MOD MDM 30-39 MIN Normal [facility] Ambulatory Visit Summaryon 1 07-01-2022 Ambulatory Visit Summary MARIAM ADDISON :1960 Visit Date:05/01/2023 Ambulatory Visit Instructions Your Diagnosis Otitis media of both ears Sinusitis Non-smoker BMI 31.0-31.9,adult Your Care Team Attending Physician - Inocencia Bravo Primary Care Physician - Inocencia Bravo This Is Your Medications List acetaminophen-oxycodon e (acetaminophen-oxycodo ne 325 mg-5 mg Tab) azithromycin (azithromycin 250 mg Tab) methylPREDNISolone (methylPREDNISolone 4 mg tab dosepak) metoprolol (Metoprolol tartrate 25 mg Tab) omeprazole (omeprazole 40 mg Cap-DR) tizanidine (tizanidine 4 mg oral capsule) Procedures Performed Appendectomy, Cystoscopy, Labyrinthectomy. Discharge Vitals Temperature (Tympanic) 36.7 ?C Heart Rate (Peripheral) 62 Respiratory Rate 18 Blood Pressure 110/72 Height 175 cm Height 69 in Weight 96.05 kg Weight 211.31 lb BMI 31.36 Medications What How Much When Why Instructions Unchanged acetaminophen-oxycodon e (acetaminophen-oxycodo ne 325 mg-5 mg Tab) 20 EA, TAKE 1 TABLET BY MOUTH EVERY 6 HOURS NEEDED FOR PAIN Unchanged azithromycin (azithromycin 250 mg Tab) 1 Packets By Mouth As Directed Duration: 5 Days as directed on package labeling Pickup at [facility]/pharmacy #[id number] Unchanged methylPREDNISolone (methylPREDNISolone 4 mg tab dosepak) 1 Packets By Mouth Once as directed on package labeling Pickup at [facility]/pharmacy #[id number] Unchanged metoprolol (Metoprolol tartrate 25 mg Tab) 1 Tablets By Mouth 2 times a day Unchanged omeprazole (omeprazole 40 mg Cap-DR) 1 Capsules By Mouth Every day Unchanged tizanidine (tizanidine 4 mg oral capsule) 1 Capsules By Mouth 3 times a day BMI 31.0-31.9,adult Non-smoker Pharmacy Information [facility]/pharmacy #[id number]: [address], [place] [id number] [phone] Allergies penicillin (Unknown) Problems Ongoing - Any problem that you are currently receiving treatment for. Atrial fibrillation Back muscle spasm BMI 30.0-30.9,adult GERD (gastroesophageal reflux disease) Meniere's disease Migraine headache Otitis media of both ears Screening for malignant neoplasm of colon Sinusitis Stomach ulcer Patient Survey You may receive a survey via text or e-mail asking about your office visit. Please share your experience with us by completing your survey. We appreciate your feedback and thank you for choosing us for your care. [facility] Ambulatory Visit Summary MARIAM ADDISON :1960 Visit Date:05/01/2023 Ambulatory Visit Instructions Your Diagnosis BMI 31.0-31.9,adult Non-smoker Otitis media of both ears Your Care Team Attending Physician - Inocencia Bravo Primary Care Physician - Inocencia Bravo This Is Your Medications List acetaminophen-oxycodon e (acetaminophen-oxycodo ne 325 mg-5 mg Tab) metoprolol (Metoprolol tartrate 25 mg Tab) omeprazole (omeprazole 40 mg Cap-DR) tizanidine (tizanidine 4 mg oral capsule) Procedures Performed Appendectomy, Cystoscopy, Labyrinthectomy. Discharge Vitals Temperature (Tympanic) 36.7 ?C Heart Rate (Peripheral) 62 Respiratory Rate 18 Blood Pressure 110/72 Height 175 cm Height 69 in Weight 96.05 kg Weight 211.31 lb BMI 31.36 Medications What How Much When Why Instructions Unchanged acetaminophen-oxycodon e (acetaminophen-oxycodo ne 325 mg-5 mg Tab) 20 EA, TAKE 1 TABLET BY MOUTH EVERY 6 HOURS NEEDED FOR PAIN Unchanged metoprolol (Metoprolol tartrate 25 mg Tab) 1 Tablets By Mouth 2 times a day Unchanged omeprazole (omeprazole 40 mg Cap-DR) 1 Capsules By Mouth Every day Unchanged tizanidine (tizanidine 4 mg oral capsule) 1 Capsules By Mouth 3 times a day BMI 31.0-31.9,adult Non-smoker Allergies penicillin (Unknown) Problems Ongoing - Any problem that you are currently receiving treatment for. Atrial fibrillation Back muscle spasm BMI 30.0-30.9,adult GERD (gastroesophageal reflux disease) Meniere's disease Migraine headache Otitis media of both ears Screening for malignant neoplasm of colon Sinusitis Stomach ulcer Patient Survey You may receive a survey via text or e-mail asking about your office visit. Please share your experience with us by completing your survey. We appreciate your feedback and thank you for choosing us for your care. Jeison [facility] Family Medicine Office/Clini c Noteon 05-01-2023 Family Medicine Office/Clinic Note HPI Staff Mariam is a 62 year old male presenting for acute visit Respiratory C/O: Onset: 1 week ago Body aches: yes Chest congestion: no Chills: yes Cough: yes Sputum production: yes yellow Sore throat: yes Ear complaints: no Eye itching/watering: no Fever: no Headache: yes Nasal congestion: yes Nasal discharge: yes yellow Poor appetite: no Reduced activity: yes Sinus pain/pressure: yes Sneezing: yes Wheezing: no Ill contacts: yes Remedies tried: DayQuil, NyQuil Questions/Concerns: History of Present Illness pt presents today with sinus symptoms and ear pain Review of Systems PHQ Score Initial Depression Screen Score: 0 ROS - Provider Constitutional: no fever, no chills, no sweats, no fatigue Respiratory: no shortness of breath, no cough, no orthopnea, no wheezing. Cardiovascular: no chest pain, no palpitations, no edema. Neurologic: no headache, no dizziness, no numbness, no weakness. EENT: sore throat, sinus pressure and nasal congestion, cough Physical Exam Vitals & Measurements T: 36.7 ?C(Tympanic) HR: 62(Peripheral) RR: 18 BP: 110/72 SpO2: 96% HT: 69 in HT: 175 cm WT: 96.05 kg WT: 211.31 lb BMI: 31.36 General: alert, no acute distress ENMT: oral mucosa moist, yes pharyngeal erythema or no exudate, MARIAMA TM and canal red, moderate amount of fluid, sinus tenderness Cardiovascular: regular rate and rhythm, normal peripheral perfusion Respiratory: Lungs CTA, respirations non labored Extremities: no deformity, no trauma Neurological: oriented x 4, LOC appropriate for age, CN II-XII intact, motor strength equal & normal bilaterally, speech normal Assessment/Plan 1. Otitis media of both ears (H66.93: Otitis media, unspecified, bilateral) MARIAMA otitis media noted on exam. throat red no exudate. swollen lymph nodes. will send antibiotics and medrol dose pack. all questions answered. RTC as needed 2. Sinusitis (J32.9: Chronic sinusitis, unspecified) see above 3. Non-smoker (Z78.9: Other specified health status) continue not smoking 4. BMI 31.0-31.9,adult (Z68.31: Body mass index [BMI] 31.0-31.9, adult) BMI education complete Orders: azithromycin, = 1 packet(s), Oral, As Directed, as directed on package labeling, X 5 day(s), # 6 tab(s), Refills(s) 0, Pharmacy: [facility]/pharmacy #[id number], 175, cm, 05/01/23 13:19:00 EST, Height/Length Dosing, 96, kg, 05/01/23 13:19:00 EST, Weight Dosing methylPREDNISolone, = 1 packet(s), Oral, Once, as directed on package labeling, # 21 tab(s), Refills(s) 0, [id number] 175, cm, 05/01/23 13:19:00 EST, Height/Length Dosing, 96, kg, 05/01/23 13:19:00 EST, Weight Dosing Follow-up No qualifying data available Problem List/Past Medical History Ongoing Atrial fibrillation Back muscle spasm BMI 30.0-30.9,adult GERD (gastroesophageal reflux disease) Meniere's disease Migraine headache Otitis media of both ears Screening for malignant neoplasm of colon Sinusitis Stomach ulcer Historical No qualifying data Procedure/Surgical History Appendectomy, Cystoscopy, Labyrinthectomy. Medications acetaminophen-oxycodon e 325 mg-5 mg Tab azithromycin 250 mg Tab, 1 packet(s), Oral, As Directed methylPREDNISolone 4 mg tab dosepak, 1 packet(s), Oral, Once Metoprolol tartrate 25 mg Tab, 25 mg= 1 tab(s), Oral, BID, 1 refills omeprazole 40 mg Cap-DR, 40 mg= 1 cap(s), Oral, Daily, 3 refills tizanidine 4 mg oral capsule, 4 mg= 1 cap(s), Oral, TID, 1 refills Allergies penicillin (Unknown) Social History Alcohol Current, Beer, Daily, 05/25/2021 Substance Abuse - Denies Substance Abuse, 05/25/2021 Tobacco Never (less than 100 in lifetime) Tobacco Use:. Never Smokeless Tobacco Use:. Household tobacco concerns: No., 03/22/2023 Family History Cardiac arrest: Mother and Father. Diabetes mellitus type 2: Mother. Immunizations Vaccine Date Status Comments SARS-CoV-2 mRNA (tozinameran 5y-11y) vac - Not Given Postpone due to refusal influenza virus vaccine, inactivated - Not Given Postpone due to refusal SARS-CoV-2 (COVID-19) Ad26 vaccine 05/06/[address]ed [address] [facility] Comment on above: Result Comment: Elec tronically Signed By: Inocencia Bravo\.br\Date and Time Signed: 05/01/23 13:45 EST [facility] 04-12-20 [facility] Case Information Case Priority: None Programs: -- Referral Source: Compensation And Benefits Advisor Referral Reason: Care coordination Case Type: Transition Care Management Risk Score: -- Case Status: Enrolled (March 14, 2023) Date Assigned: March 14, 2023 Assigned By: Kelsey Marroquin RN Date Enrolled: March 14, 2023 Assigned Primary Personnel: Kelsey Marroquin RN Assigned Secondary Personnel: Rick Suazo Case Physician: Inocencia Bravo Problems Ongoing Atrial fibrillation Back muscle spasm BMI 30.0-30.9,adult GERD (gastroesophageal reflux disease) Meniere's disease Migraine headache Screening for malignant neoplasm of colon Stomach ulcer Historical No qualifying data Procedure/Surgical History Appendectomy, Cystoscopy, Labyrinthectomy. Home Medications acetaminophen-oxycodon e 325 mg-5 mg Tab Metoprolol tartrate 25 mg Tab, 25 mg= 1 tab(s), Oral, BID, 1 refills omeprazole 40 mg Cap-DR, 40 mg= 1 cap(s), Oral, Daily, 3 refills tizanidine 4 mg oral capsule, 4 mg= 1 cap(s), Oral, TID Allergies penicillin (Unknown) Social History Alcohol Current, Beer, Daily, 05/25/2021 Substance Abuse - Denies Substance Abuse, 05/25/2021 Tobacco Never (less than 100 in lifetime) Tobacco Use:. Never Smokeless Tobacco Use:. Household tobacco concerns: No., 03/22/2023 Family History Cardiac arrest: Mother and Father. Diabetes mellitus type 2: Mother. Screenings and Assessments 03/14/23 14:39:00 Result Name Value Comment Phone Call Monitoring Consent Agreed to continue call Phone Verification Patient Information Full name, street address and date of verified CM Program Enrollment Provides verbal consent for enrollment Goals and Interventions Care Plan Progress Note TCM#5- spoke with patient for final TCM program call, states he is still having some back pain/discomfort. He is alternating heat and ice packs. He notes it is getting somewhat better and just needs more time to recover. Patient has been walking a couple blocks per day, encouraged to stretch before and after walk. Patient denies need for OV follow up at this time. Discussed possible PT referral if symptoms persist. States he is eating and drinking well. He does sleep okay, there have been a few nights where he goes to his recliner in the middle of the night due to having a headache. Patient will call if decides he needs to be seen. Patient denies any further questions or concerns. Communication Events Date: April 12, 2023 Method: Phone call Type: Outbound Duration (min): 6 Outcome: Case discussion Contact Type: employee communications coordinator Contact Name: Rick Suazo Notes: TCM#5- Returned call to patient for TCM #5 status update, see ft summary note. Created By: Rick Suazo Date: April 12, 2023 Method: Phone call Type: Outbound Duration (min): 1 Outcome: Left message-voicemail Contact Type: employee communications coordinator Contact Name: Rick Suazo Notes: TCM#5- attemtped to reach patient for final TCM program call status update, left vm for return call. Created By: Rick Suazo Date: April 06, 2023 Method: Phone call Type: Inbound Duration (min): 5 Outcome: Case discussion Contact Type: Patient Contact Name: MARIAM ADDISON Notes: TCM#4- Spoke with patient for TCM program call status update, see case summary note. Created By: Rick Suazo Date: April 06, 2023 Method: Phone call Type: Outbound Duration (min): 1 Outcome: Left message-voicemail Contact Type: employee communications coordinator Contact Name: Rick Suazo Notes: TCM#4- TCM#4- attempted to reach patient for final TCM program call status update, no answer, left vm for return call. Created By: Rick Suazo Date: March 27, 2023 Method: Phone call Type: Outbound Duration (min): 2 Outcome: Case discussion Contact Type: employee communications coordinator Contact Name: Rick Suazo Notes: TCM#3- Contacted patient for TCM program call status update, see case summary note. Created By: Rick Suazo Date: March 22, 2023 Method: Phone call Type: Outbound Duration (min): 1 Outcome: Case discussion Contact Type: employee communications coordinator Contact Name: Rick Suazo Notes: TCM#2- Patient contacted for TCM program call status update, patient is currently at PCP office for back pain/f/u. Created By: Rick Suazo Date: March 14, 2023 Method: Phone call Type: Outbound Duration (min): 14 Outcome: Case discussion Contact Type: employee communications coordinator Contact Name: Kelsey Marroquin RN Notes: TCM #1, see FT summary note. Created By: Kelsey Marroquin RN for [facility] [employer] 04-06-2023 Forms [id number] 00 [id number] 0TIFF [facility] Population [facility] 04-06-20 [facility] Case Information Case Priority: None Programs: -- Referral Source: Compensation And Benefits Advisor Referral Reason: Care coordination Case Type: Transition Care Management Risk Score: -- Case Status: Enrolled (March 14, 2023) Date Assigned: March 14, 2023 Assigned By: Kelsey Marroquin RN Date Enrolled: March 14, 2023 Assigned Primary Personnel: Kelsey Marroquin RN Assigned Secondary Personnel: Rick Suazo Case Physician: Inocencia Bravo Problems Ongoing Atrial fibrillation Back muscle spasm BMI 30.0-30.9,adult GERD (gastroesophageal reflux disease) Meniere's disease Migraine headache Screening for malignant neoplasm of colon Stomach ulcer Historical No qualifying data Procedure/Surgical History Appendectomy, Cystoscopy, Labyrinthectomy. Home Medications acetaminophen-oxycodon e 325 mg-5 mg Tab Metoprolol tartrate 25 mg Tab, 25 mg= 1 tab(s), Oral, BID, 1 refills omeprazole 40 mg Cap-DR, 40 mg= 1 cap(s), Oral, Daily, 3 refills tizanidine 4 mg oral capsule, 4 mg= 1 cap(s), Oral, TID Allergies penicillin (Unknown) Social History Alcohol Current, Beer, Daily, 05/25/2021 Substance Abuse - Denies Substance Abuse, 05/25/2021 Tobacco Never (less than 100 in lifetime) Tobacco Use:. Never Smokeless Tobacco Use:. Household tobacco concerns: No., 03/22/2023 Family History Cardiac arrest: Mother and Father. Diabetes mellitus type 2: Mother. Screenings and Assessments 03/14/23 14:39:00 Result Name Value Comment Phone Call Monitoring Consent Agreed to continue call Phone Verification Patient Information Full name, street address and date of verified CM Program Enrollment Provides verbal consent for enrollment Goals and Interventions Care Plan Progress Note TCM#4- Patient states it was a rough week getting back to work. States he did have quite a bit of back pain. He did leaves work early a day, but states today he felt a lot better. He is going to rest this this weekend and take it easy, and is hoping for a better week next week. Patient is eating and drinking okay. Denies any issues or concerns with sleeping. Patient denies need for refills on medications at this time. Advise CN will follow up one more time next week. Denies any further questions or concerns. Communication Events Date: April 06, 2023 Method: Phone call Type: Inbound Duration (min): 5 Outcome: Case discussion Contact Type: Patient Contact Name: MARIAM ADDISON Notes: TCM#4- Spoke with patient for TCM program call status update, see case summary note. Created By: Rick Suazo Date: April 06, 2023 Method: Phone call Type: Outbound Duration (min): 1 Outcome: Left message-voicemail Contact Type: employee communications coordinator Contact Name: Rick Suazo Notes: TCM#4- TCM#4- attempted to reach patient for final TCM program call status update, no answer, left vm for return call. Created By: Rick Suazo Date: March 27, 2023 Method: Phone call Type: Outbound Duration (min): 2 Outcome: Case discussion Contact Type: employee communications coordinator Contact Name: Rick Suazo Notes: TCM#3- Contacted patient for TCM program call status update, see case summary note. Created By: Rick Suazo Date: March 22, 2023 Method: Phone call Type: Outbound Duration (min): 1 Outcome: Case discussion Contact Type: employee communications coordinator Contact Name: Rick Suazo Notes: TCM#2- Patient contacted for TCM program call status update, patient is currently at PCP office for back pain/f/u. Created By: Rick Suazo Date: March 14, 2023 Method: Phone call Type: Outbound Duration (min): 14 Outcome: Case discussion Contact Type: employee communications coordinator Contact Name: Kelsey Marroquin RN Notes: TCM #1, see FT summary note. Created By: Kelsey Marroquin RN [facility] [employer] 03-27-2023 Forms [id number] 0CD:127 [facility] 03-27-20 Population [facility] Case Information Case Priority: None Programs: -- Referral Source: Compensation And Benefits Advisor Referral Reason: Care coordination Case Type: Transition Care Management Risk Score: -- Case Status: Enrolled (March 14, 2023) Date Assigned: March 14, 2023 Assigned By: Kelsey Marroquin RN Date Enrolled: March 14, 2023 Assigned Primary Personnel: Kelsey Marroquin RN Assigned Secondary Personnel: -- Case Physician: Inocencia Bravo Problems Ongoing Atrial fibrillation Back muscle spasm BMI 30.0-30.9,adult GERD (gastroesophageal reflux disease) Meniere's disease Migraine headache Screening for malignant neoplasm of colon Stomach ulcer Historical No qualifying data Procedure/Surgical History Appendectomy, Cystoscopy, Labyrinthectomy. Home Medications acetaminophen-oxycodon e 325 mg-5 mg Tab Metoprolol tartrate 25 mg Tab, 25 mg= 1 tab(s), Oral, BID omeprazole 40 mg Cap-DR, 40 mg= 1 cap(s), Oral, Daily tizanidine 4 mg oral capsule, 4 mg= 1 cap(s), Oral, TID Allergies penicillin (Unknown) Social History Alcohol Current, Beer, Daily, 05/25/2021 Substance Abuse - Denies Substance Abuse, 05/25/2021 Tobacco Never (less than 100 in lifetime) Tobacco Use:. Never Smokeless Tobacco Use:. Household tobacco concerns: No., 03/22/2023 Family History Cardiac arrest: Mother and Father. Diabetes mellitus type 2: Mother. Screenings and Assessments 03/14/23 14:39:00 Result Name Value Comment Phone Call Monitoring Consent Agreed to continue call Phone Verification Patient Information Full name, street address and date of verified CM Program Enrollment Provides verbal consent for enrollment Goals and Interventions Care Plan Progress Note TCM#3- Patient states he is doing very well. Notes that his back spasm have resolved. He continues taking tizanidine as prescribed. Patient continues to wear the 30 day event monitor without issues. Patient is eating and drinking well. Denies any issues or concerns with bowel/ urinary system. Notes he is sleeping well. States he is looking forward to returning to work on Sunday, 04/02. Patient denies any further questions or concerns. Communication Events Date: March 27, 2023 Method: Phone call Type: Outbound Duration (min): 2 Outcome: Case discussion Contact Type: employee communications coordinator Contact Name: Rick Suazo Notes: TCM#3- Contacted patient for TCM program call status update, see case summary note. Created By: Rick Suazo Date: March 22, 2023 Method: Phone call Type: Outbound Duration (min): 1 Outcome: Case discussion Contact Type: employee communications coordinator Contact Name: Rick Suazo Notes: TCM#2- Patient contacted for TCM program call status update, patient is currently at PCP office for back pain/f/u. Created By: Rick Suazo Date: March 14, 2023 Method: Phone call Type: Outbound Duration (min): 14 Outcome: Case discussion Contact Type: employee communications coordinator Contact Name: Kelsey Marroquin RN Notes: TCM #1, see FT summary note. Created By: Kelsey Marroquin RN [facility] Provider Letteron 03-26-2023 Provider Letter March 26, 2023 [place] [address] : 1960 To Whom It May Concern, Please excuse above patient from work, Don may return to work on Sunday Date of Illness: From: _ 2022 To: _ Oct. 8, 2023 May Return to Work On:2022 Restrictions: _ None Comments: _ Sincerely, [place] [address] Normal [facility] 03-22-2023 Consent [id number] 0CD:[id number] Normal [facility] Family Medicine Office/Clini c Noteon 03-22-2023 Family Medicine Office/Clinic Note HPI Staff Mariam is a 62 year old male presenting with Back pain Pain characteristics: MISTY: 03/15/2023 TCM follow up for Muscle spasms was given medrol dose pack. Pain location: Back Intensity:1/10 currently not in a lot of pain but when spasms hit pain goes up to 5-6 Onset: Medication used: acetaminophen-oxycodon e taking mainly at bedtime to help him sleep Opioids prescribed: Medication agreement UTD: _ Urine drug screen performed:_ pt states he is feeling better, but back still continues to spasm when standing to long or going to get up from a chair. Continues to walk with a cane. Doesn't feel the muscle relaxer is working for him. states when he gets up at night to use the restroom she will feel him jerking due to his muscle spasm. Pt saw cardiology last week ecg was normal, pt has 30 days heart monitor on. History of Present Illness pt presents for follow up on back spasms Review of Systems PHQ Score Initial Depression Screen Score: 0 ROS - Provider Constitutional: no fever, no chills, no sweats, no fatigue Respiratory: no shortness of breath, no cough, no orthopnea, no wheezing. Cardiovascular: no chest pain, no palpitations, no edema. Neurologic: no headache, no dizziness, no numbness, no weakness. back pain/spasms Physical Exam Vitals & Measurements HR: 78(Peripheral) RR: 18 BP: 112/82 SpO2: 99% HT: 69 in HT: 175 cm WT: 95.16 kg WT: 209.352 lb BMI: 31.07 General: alert, no acute distress ENMT: oral mucosa moist, no pharyngeal erythema or exudate Cardiovascular: regular rate and rhythm, normal peripheral perfusion Respiratory: Lungs CTA, respirations non labored Extremities: no deformity, no trauma Neurological: oriented x 4, LOC appropriate for age, CN II-XII intact, motor strength equal & normal bilaterally, speech normal Assessment/Plan 1. Back muscle spasm (M62.830: Muscle spasm of back) pt c/o back spasms that are continuing. he states it has improved somewhat but still not the best. pt is still using a cane to walk. is unable to go back to work. we are waiting for [facility] paper work to complete for him. He will remain off of work for another week. we will give him kenalog in office today. and change muscle relaxer to tizanidine. all questions answered. RTC as needed Ordered: methylPREDNISolone, = 1 packet(s), Oral, As Directed, as directed on package labeling, X 6 day(s), # 21 tab(s), Refills(s) 0, Pharmacy: [facility]/pharmacy #[id number], 175, cm, 03/15/23 11:14:00 EDT, Height/Length Dosing, 94.4, kg, 03/15/23 11:14:00 EDT, Weight Dosing triamcinolone, 60 mg = 1.5 mL, Injection, IntraMuscular, Once, Stop date 03/22/23 11:16:00 EDT, Routine, Start date 03/22/23 11:16:00 EDT, 03/22/23 11:16:00 EDT 2. BMI 31.0-31.9,adult (Z68.31: Body mass index [BMI] 31.0-31.9, adult) BMI education complete Ordered: tizanidine, 4 mg = 1 cap(s), Oral, TID, # 90 cap(s), Refills(s) 0, Pharmacy: [facility]/pharmacy #[id number], 175, cm, 03/22/23 10:56:00 EDT, Height/Length Dosing, 95.2, kg, 03/22/23 10:56:00 EDT, Weight Dosing triamcinolone, 60 mg = 1.5 mL, Injection, IntraMuscular, Once, Stop date 03/22/23 11:16:00 EDT, Routine, Start date 03/22/23 11:16:00 EDT, 03/22/23 11:16:00 EDT 3. Non-smoker (Z78.9: Other specified health status) continue not smoking Ordered: methylPREDNISolone, = 1 packet(s), Oral, As Directed, as directed on package labeling, X 6 day(s), # 21 tab(s), Refills(s) 0, [id number] 175, cm, 03/15/23 11:14:00 EDT, Height/Length Dosing, 94.4, kg, 03/15/23 11:14:00 EDT, Weight Dosing tizanidine, 4 mg = 1 cap(s), Oral, TID, # 90 cap(s), Refills(s) 0, [id number], 175, cm, 03/22/23 10:56:00 EDT, Height/Length Dosing, 95.2, kg, 03/22/23 10:56:00 EDT, Weight Dosing triamcinolone, 60 mg = 1.5 mL, Injection, IntraMuscular, Once, Stop date 03/22/23 11:16:00 EDT, Routine, Start date 03/22/23 11:16:00 EDT, 03/22/23 11:16:00 EDT Follow-up No qualifying data available Problem List/Past Medical History Ongoing Atrial fibrillation Back muscle spasm BMI 30.0-30.9,adult GERD (gastroesophageal reflux disease) Meniere's disease Migraine headache Screening for malignant neoplasm of colon Stomach ulcer Historical No qualifying data Procedure/Surgical History Appendectomy, Cystoscopy, Labyrinthectomy. Medications acetaminophen-oxycodon e 325 mg-5 mg Tab Metoprolol tartrate 25 mg Tab, 25 mg= 1 tab(s), Oral, BID omeprazole 40 mg Cap-DR, 40 mg= 1 cap(s), Oral, Daily tizanidine 4 mg oral capsule, 4 mg= 1 cap(s), Oral, TID Allergies penicillin (Unknown) Social History Alcohol Current, Beer, Daily, 05/25/2021 Substance Abuse - Denies Substance Abuse, 05/25/2021 Tobacco Never (less than 100 in lifetime) Tobacco Use:. Never Smokeless Tobacco Use:. Household tobacco concerns: No., 03/22/2023 Family History Cardiac arrest: Mother and Father. Diabetes mellitus type 2: Mother. Immunizations Vaccine Date Status Comments SARS-CoV-2 mRNA (tozinameran (more content not included)... Normal [facility] Comment on above: Result Comment: Elec tronically Signed By: Inocencia Bravo\Date and Time Signed: 03/22/23 11:24 EDT Office Visiton 03-20-2023 Follow-up visit [id number] AddisonMarcela antony howie J 1960 M Date Provider Department Center 03/20/2023 TAMMY SILVEIRA CARD [facility] No family history on file Level of Service:[id number] [place] OFFICE/OUTPATIENT NEW HIGH MDM 60-74 MINUTES Normal [facility] Auto Diffon 03-15-2023 Basophils/100 WBC (Bld) 0.4 % Normal 0.0-2.0 [facility] Comment on above: Order Comment: Order Added by Discern Expert. Performed By: #### [id number] ####[facility] [id number] [place] [address] Basophils/Leukocytes Auto (Bld) [Pure # fraction] 0.0 E9/L Normal 0.0-0.2 [facility] Comment on above: Order Comment: Order Added by Discern Expert. Performed By: #### 2 [id number] ####[facility] [id number] [place] [address] Eosinophils/100 WBC (Bld) 3.6 % Normal 0.0-8.0 [facility] Comment on above: Order Comment: Order Added by Discern Expert. Performed By: #### [id number] ####[facility] [id number] [place] [address] Eosinophils/Leukocyte s Auto (Bld) [Pure # fraction] 0.3 E9/L Normal 0.0-0.5 [facility] Comment on above: Order Comment: Order Added by Discern Expert. Performed By: #### 2 [id number] ####[facility] [id number] [place] [address] Lymphocytes/100 WBC (Bld) 15.5 % Normal 14.0-50.0 [facility] Comment on above: Order Comment: Order Added by Discern Expert. Performed By: #### 2 [id number], [id number] ####[place] [place] [address] Lymphocytes/Leukocyte s Auto (Bld) [Pure # fraction] 1.2 E9/L Normal 1.0-4.0 [facility] Comment on above: Order Comment: Order Added by Discern Expert. Performed By: #### 2 [id number], [id number] ####[address] [address] Monocytes/100 WBC (Bld) 11.2 % Normal 4.0-14.0 [facility] Comment on above: Order Comment: Order Added by Discern Expert. Performed By: #### 2 [id number], [id number] ####[address] [address] Monocytes/Leukocytes Auto (Bld) [Pure # fraction] 0.9 E9/L Normal 0.2-1.0 [facility] Comment on above: Order Comment: Order Added by Sun Expert. Performed By: #### 2 [id number], [id number] ####[address] [address] Neutrophils/100 WBC (Bld) 69.3 % Normal 36.0-75.0 [facility] Comment on above: Order Comment: Order Added by Discern Expert. Performed By: #### 2 [id number], [id number] ####[address] [address] Neutrophils/Leukocyte s Auto (Bld) [Pure # fraction] 5.4 E9/L Normal 2.0-7.5 [facility] Comment on above: Order Comment: Order Added by Discern Expert. Performed By: #### 2 [id number], [id number] ####[address] [address] CBC w/ Auto Diffon 3 Erythrocyte distribution width (RBC) [Ratio] 13.1 % Normal 10.9-14.2 [facility] Comment on above: Performed By: #### 2 [id number], [id number] ####[address] [address] Hematocrit (Bld) [Volume fraction] 45.6 % Normal 37.7-49.0 [facility] Comment on above: Performed By: #### 2 834245, [id number] ####[address] [address] Hemoglobin (Bld) [Mass/Vol] 15.3 g/dL Normal 13.5-17.5 [facility] Comment on above: Performed By: #### 2 [id number], [id number] ####[address] [address] MCH (RBC) [Entitic mass] 30.5 pg Normal 27.0-34.0 [facility] Comment on above: Performed By: #### 2 [id number], [id number] ####[address] [address] MCHC (RBC) [Mass/Vol] 33.6 g/dL Normal 31.4-36.0 [facility] Comment on above: Performed By: #### 2 280876, [id number] ####[address] [address] MCV (RBC) [Entitic vol] 90.7 fL Normal 80.0-100.0 [facility] Comment on above: Performed By: #### 2 178750, [id number] ####[address] [address] Platelet mean volume (Bld) [Entitic vol] 8.0 fL Normal 6.4-10.8 [facility] Comment on above: Performed By: #### 2 [id number], [id number] ####[address] [address] Platelets (Bld) [#/Vol] 241.0 E9/L Normal 150.0-500.0 [facility] Comment on above: Performed By: #### 2 [id number], [id number] ####[facility] [address] [place] [address] RBC (Bld) [#/Vol] 5.0 E12/L Normal 4.3-5.9 [facility] Comment on above: Performed By: #### 2 102071, [id number] ####[facility] [address] [place] [address] WBC corrected for nucl RBC Auto (Bld) [#/Vol] 7.8 E9/L Normal 4.0-11.0 [facility] Comment on above: Result Comment: Slid e reviewed by AD. Performed By: #### 2 [id number], [id number] ####[facility] [address] [place] [address] Family Medicine Office/Clini c Noteon 03-15-2023 Family Medicine Office/Clinic Note HPI Staff Mariam is a 62 year old male presenting for TCM follow up TCM: Hospital: [facility] Admission date: 03/09/2023 Discharge date: 03/12/23 Symptoms the patient presented with: Dx: Back Spasms, stomach ulcers, A-fib Current concerns: Pt has appointment with with [facility] cardiology next Tuesdays pt states still continues to have back spasms not as bad but they are still there rating pain 6 out of 10 when the spasm comes. pt is walking with a walker. Increased back pain with ambulation and getting up out of chair. Does help sometimes when sitting. pt unsure what is going on regarding the stomach ulcers. states he is to have follow up appointment with Dr Moore. History of Present Illness pt presents today for TCM visit. was admitted to [facility]. needs cardiology referral Review of Systems PHQ Score Initial Depression Screen Score: 0 ROS - Provider Constitutional: no fever, no chills, no sweats, no fatigue Respiratory: no shortness of breath, no cough, no orthopnea, no wheezing. Cardiovascular: no chest pain, no palpitations, no edema. Neurologic: no headache, no dizziness, no numbness, no weakness. Physical Exam Vitals & Measurements HR: 90(Peripheral) RR: 18 BP: 128/84 SpO2: 98% HT: 69 in HT: 175 cm WT: 94.4 kg WT: 207.68 lb BMI: 30.82 General: alert, no acute distress ENMT: oral mucosa moist, no pharyngeal erythema or exudate Cardiovascular: regular rate and rhythm, normal peripheral perfusion Respiratory: Lungs CTA, respirations non labored Extremities: no deformity, no trauma Neurological: oriented x 4, LOC appropriate for age, CN II-XII intact, motor strength equal & normal bilaterally, speech normal Assessment/Plan 1. Atrial fibrillation (I48.91: Unspecified atrial fibrillation) pt went to ER and was found to have afib and bleeding gastric ulcers. pt has appointment with cardiology next week. he went into afib during EGD procedure. Ordered: methylPREDNISolone, = 1 packet(s), Oral, As Directed, as directed on package labeling, X 6 day(s), # 21 tab(s), Refills(s) 0, Pharmacy: [facility]/pharmacy #[id number], 175, cm, 03/15/23 11:14:00 EDT, Height/Length Dosing, 94.4, kg, 03/15/23 11:14:00 EDT, Weight Dosing TCM [facility] 7 day disch [address] 2. Back muscle spasm (M62.830: Muscle spasm of back) pt went to ER for back spasms/pain. He is still having spasms. will order medrol dose pack. Ordered: methylPREDNISolone, = 1 packet(s), Oral, As Directed, as directed on package labeling, X 6 day(s), # 21 tab(s), Refills(s) 0, Pharmacy: [facility]/pharmacy #[id number], 175, cm, 03/15/23 11:14:00 EDT, Height/Length Dosing, 94.4, kg, 03/15/23 11:14:00 EDT, Weight Dosing TCM [facility] 7 day disch [address]38 3. Stomach ulcer (K25.9: Gastric ulcer, unspecified as acute or chronic, without hemorrhage or perforation) pt was admitted to [facility] for active bleeding ulcer. he was vomiting blood after receiving toradol injection for back pain. needs referral to GI. CBC drawn in office today to monitor hemoglobin. pt lips are pale today Ordered: methylPREDNISolone, = 1 packet(s), Oral, As Directed, as directed on package labeling, X 6 day(s), # 21 tab(s), Refills(s) 0, Pharmacy: [facility]/pharmacy #[id number], 175, cm, 03/15/23 11:14:00 EDT, Height/Length Dosing, 94.4, kg, 03/15/23 11:14:00 EDT, Weight Dosing [facility] 7 day disch [id number] 4. BMI 30.0-30.9,adult (Z68.30: Body mass index [BMI] 30.0-30.9, adult) BMI education complete Ordered: methylPREDNISolone, = 1 packet(s), Oral, As Directed, as directed on package labeling, X 6 day(s), # 21 tab(s), Refills(s) 0, Pharmacy: [facility]/pharmacy #[id number], 175, cm, 03/15/23 11:14:00 EDT, Height/Length Dosing, 94.4, kg, 03/15/23 11:14:00 EDT, Weight Dosing 5. Non-smoker (Z78.9: Other specified health status) continue not smoking Ordered: methylPREDNISolone, = 1 packet(s), Oral, As Directed, as directed on package labeling, X 6 day(s), # 21 tab(s), Refills(s) 0, Pharmacy: [facility]/pharmacy #[id number], 175, cm, 03/15/23 11:14:00 EDT, Height/Length Dosing, 94.4, kg, 03/15/23 11:14:00 EDT, Weight Dosing Orders: CBC w/ Auto Diff Lab Specimen Collect [id number] Follow-up No qualifying data available Problem List/Past Medical History Ongoing Atrial fibrillation Back muscle spasm BMI 30.0-30.9,adult GERD (gastroesophageal reflux disease) Meniere's disease Migraine headache Screening for malignant neoplasm of colon Stomach ulcer Historical No qualifying data Procedure/Surgical History Appendectomy, Cystoscopy, Labyrinthectomy. Medications acetaminophen-oxycodon e 325 mg-5 mg Tab cyclobenzaprine 10 mg Tab Medrol 4 mg Tab, 1 packet(s), Oral, As Directed Metoprolol tartrate 25 mg Tab, 25 mg= 1 tab(s), Oral, BID omeprazole 40 mg Cap-DR, 40 mg= 1 cap(s), Oral, Daily Allergies penicillin (Unknown) Social History Alcohol Current, Beer, Daily, 05/25/2021 Substance Abuse - Denies Substance Abuse, 05/25/2021 Tobacco Never (less than 100 in lifetime) Tobacco Use:. Never Smokeless Tob (more content not included)... Normal [facility] Comment on above: Result Comment: Elec tronically Signed By: Inocencia Bravo\.taty\Date and Time Signed: 03/15/23 12:29 EDT HEMATOLOGYOrdered By: SYSTEM SYSTEM on 03-15-2023 Basophils/100 WBC (Bld) 0.4 % Normal 0.0 - 2.0 % [facility] Basophils/Leukocytes Auto (Bld) [Pure # fraction] 0.0 E9/L Normal 0.0 - 0.2 E9/L [facility] Eosinophils/100 WBC (Bld) 3.6 % Normal 0.0 - 8.0 % [facility] Eosinophils/Leukocyte s Auto (Bld) [Pure # fraction] 0.3 E9/L Normal 0.0 - 0.5 E9/L [facility] Lymphocytes/100 WBC (Bld) 15.5 % Normal 14.0 - 50.0 % [facility] Lymphocytes/Leukocyte s Auto (Bld) [Pure # fraction] 1.2 E9/L Normal 1.0 - 4.0 E9/L [facility] Monocytes/100 WBC (Bld) 11.2 % Normal 4.0 - 14.0 % [facility] Monocytes/Leukocytes Auto (Bld) [Pure # fraction] 0.9 E9/L Normal 0.2 - 1.0 E9/L [facility] Neutrophils/100 WBC (Bld) 69.3 % Normal 36.0 - 75.0 % [facility] Neutrophils/Leukocyte s Auto (Bld) [Pure # fraction] 5.4 E9/L Normal 2.0 - 7.5 E9/L [facility] HEMATOLOGYOrdered By: Josep Betancur on 03-15-2023 Erythrocyte distribution width (RBC) [Ratio] 13.1 % Normal 10.9 - 14.2 % [facility] Hematocrit (Bld) [Volume fraction] 45.6 % Normal 37.7 - 49.0 % [facility] Hemoglobin (Bld) [Mass/Vol] 15.3 g/dL Normal 13.5 - 17.5 gm/dL [facility] MCH (RBC) [Entitic mass] 30.5 pg Normal 27.0 - 34.0 pg [facility] MCHC (RBC) [Mass/Vol] 33.6 g/dL Normal 31.4 - 36.0 gm/dL [facility] MCV (RBC) [Entitic vol] 90.7 fL Normal 80.0 - 100.0 fL [facility] Platelet mean volume (Bld) [Entitic vol] 8.0 fL Normal 6.4 - 10.8 fL [facility] Platelets (Bld) [#/Vol] 241.0 E9/L Normal 150.0 - 500.0 E9/L [facility] RBC (Bld) [#/Vol] 5.0 E12/L Normal 4.3 - 5.9 E12/L [facility] WBC corrected for nucl RBC Auto (Bld) [#/Vol] 7.8 E9/L Normal 4.0 - 11.0 E9/L [facility] Comment on above: Result Comment: Slid e reviewed by AD. [facility] Correspondence [id number]:[id number] Normal [facility] 03-14-20 [facility] Case Information Case Priority: None Programs: -- Referral Source: Compensation And Benefits Advisor Referral Reason: Care coordination Case Type: Transition Care Management Risk Score: -- Case Status: Enrolled (March 14, 2023) Date Assigned: March 14, 2023 Assigned By: Kelsey Marroquin RN Date Enrolled: March 14, 2023 Assigned Primary Personnel: Kelsey Marroquin RN Assigned Secondary Personnel: -- Case Physician: Inocencia Bravo Problems Ongoing BMI 30.0-30.9,adult GERD (gastroesophageal reflux disease) Meniere's disease Migraine headache Screening for malignant neoplasm of colon Historical No qualifying data Procedure/Surgical History Appendectomy, Cystoscopy, Labyrinthectomy. Home Medications baclofen 10 mg Tab, 10 mg= 1 tab(s), Oral, TID Metoprolol tartrate 25 mg Tab, 25 mg= 1 tab(s), Oral, BID omeprazole 40 mg Cap-DR, 40 mg= 1 cap(s), Oral, Daily Allergies penicillin (Unknown) Social History Alcohol Current, Beer, Daily, 05/25/2021 Substance Abuse - Denies Substance Abuse, 05/25/2021 Tobacco Never (less than 100 in lifetime) Tobacco Use:. Never Smokeless Tobacco Use:., 09/15/2022 Family History Cardiac arrest: Mother and Father. Diabetes mellitus type 2: Mother. Screenings and Assessments 03/14/23 14:39:00 Result Name Value Comment Phone Call Monitoring Consent Agreed to continue call Phone Verification Patient Information Full name, street address and date of verified CM Program Enrollment Provides verbal consent for enrollment Goals and Interventions Care Plan Progress Note Admit Date: 03/09/23 [facility] Date of Discharge: 03/12/23 Follow-up appointment scheduled? yes, 03/15/23 at 1100 with Kenji Shah Did you understand your discharge instructions? yes Are you able to follow them? yes Did you receive new medications? yes, Metoprolol 25 mg BID, Omeprazole 40 mg daily, Baclofen 10 mg TID Have you filled the Rx's? yes Are you taking them as prescribed? yes Are you having difficulty eating or swallowing your pills? no Are you having any stomach upset, diarrhea or constipation? no How are you sleeping? poorly due to pain Are you having any pain? yes, low back pain rates 6 out 10. Do you have everything you need at home to care for yourself? yes Do you have Home Health? no Called patient for Transitional Care Management following hospitalization at [facility] for Low back pain, hematemesis, upper GI bleed, multiple gastric ulcers found on EGD. Reviewed discharge instructions and medications reconciled with patient, discharge list and medication updated in EHR. Reviewed purpose and side effects of new medications with patient. Patient eating and drinking without difficulty, having bowel movements with difficulty in squatting due to back pain. Patient not sleeping for more than 2 hours at a time due to low back pain and inability to get comfortable . Patient was told to follow-up with cardiology in 2 weeks, patient has not seen a manager of sustainability and was not taking any prescription medications prior to hospitalization. Patient will need referral to a manager of sustainability. Patient was originally scheduled for 03/21/23 at 1500, rescheduled to 03/15/23 at 1100 with extra time given due to complexity of patient. TCM services explained and direct phone number given. Communication Events Date: March 14, 2023 Method: Phone call Type: Outbound Duration (min): 14 Outcome: Case discussion Contact Type: employee communications coordinator Contact Name: Kelsey Marroquin RN Notes: TCM #1, see FT summary note. Created By: Kelsey Marroquin RN [facility] CBC AUTO DIFFon 10-11-2021 BASO # 0.1 103/ul Normal 0.0-0.1 [facility] Comment on above: Performed By: #### C BC #### [facility] [address] [address] [address] Klever Amin Basophils/100 WBC (Bld) 0.7 % Normal 0.2-2.0 [facility] Comment on above: Performed By: #### C BC #### [facility] [address] [place] [address] Dr. Klever Amin EO # 0.2 103/ul Normal 0.0-0.7 [facility] Comment on above: Performed By: #### C BC #### [facility] [address] [place] [address] Dr. Klever Amin Eosinophils/100 WBC (Bld) 3.3 % Normal 0.9-7.0 [facility] Comment on above: Performed By: #### C BC #### [facility] [address] [place] [address] Dr. Klever Amin Erythrocyte distribution width (RBC) [Ratio] 13.0 % Normal 11.0-15.0 [facility] Comment on above: Performed By: #### C BC #### [facility] [address] [place] [address] Dr. Klever Amin Hematocrit (Bld) [Volume fraction] 47.9 % Normal 42.0-54.0 [facility] Comment on above: Performed By: #### C BC #### [facility] [address] [place] [address] Dr. Klever Amin Hemoglobin (Bld) [Mass/Vol] 15.6 g/dL Normal 14.0-18.0 [facility] Comment on above: Performed By: #### C BC #### [facility] [address] [address] [address] Klever Amin IG # 0.04 10e3/ul Critically high 0.00-0.03 [facility] Comment on above: Performed By: #### C BC #### [facility] [address] [address] [address] Klever Amin IG % 0.6 % Critically high 0.0-0.5 [facility] Comment on above: Performed By: #### C BC #### [facility] [address] [address] [address] Klever Amin LYMPH # 2.0 103/ul Normal 1.2-3.8 [facility] Comment on above: Performed By: #### C BC #### [facility] [address] [place] [address] Dr. Klever Amin Lymphocytes/100 WBC (Bld) 29.3 % Normal 20.5-60.0 [facility] Comment on above: Performed By: #### C BC #### [facility] [address] [place] [address] Dr. Klever Amin MANUAL DIFF REQ NO Normal [facility] Comment on above: Performed By: #### C BC #### [facility] [address] [place] [address] Dr. Klever Amin MCH (RBC) [Entitic mass] 30.2 pg Normal 25.9-34.0 [facility] Comment on above: Performed By: #### C BC #### [facility] [address] [place] [address] Dr. Klever Amin MCHC (RBC) [Mass/Vol] 32.6 g/dL Normal 29.9-35.2 [facility] Comment on above: Performed By: #### C BC #### [facility] [address] [place] [address] Dr. Klever Amin MCV (RBC) [Entitic vol] 92.8 fL Normal 80.0-94.0 [facility] Comment on above: Performed By: #### C BC #### [facility] [address] [place] [address] Dr. Klever Amin MONO # 0.8 103/ul Normal 0.3-0.8 [facility] Comment on above: Performed By: #### C BC #### [facility] [address] [place] [address] Dr. Klever Amin Monocytes/100 WBC (Bld) 11.6 % Normal 1.7-12.0 [facility] Comment on above: Performed By: #### C BC #### [facility] [address] [place] [address] Dr. Klever Amin NEUT # 3.7 103/ul Normal 1.4-6.5 [facility] Comment on above: Performed By: #### C BC #### [facility] [address] [place] [address] Dr. Klever Amin Neutrophils/100 WBC (Bld) 54.5 % Normal 43.0-75.0 [facility] Comment on above: Performed By: #### C BC #### [facility] [address] [place] [address] Dr. Klever Amin Platelet mean volume (Bld) [Entitic vol] 8.7 fL Critically low 9.5-13.5 [facility] Comment on above: Performed By: #### C BC #### [facility] [address] [place] [address] Dr. Klever Amin PLT 253 103/ul Normal 150-450 [facility] Comment on above: Performed By: #### C BC #### [facility] [address] [place] [address] Dr. Klever Amin RBC 5.16 106/ul Normal 4.70-6.10 [facility] Comment on above: Performed By: #### C BC #### [facility] [address] [place] [address] Dr. Klever Amin WBC 6.9 103/ul Normal 4.0-11.0 [facility] Comment on above: Performed By: #### C BC #### [facility] [address] [place] [address] Dr. Klever Amin LIPID PROFILEon 10-11-2021 CHOL-HDL RATIO NORM SEE BELOW Normal [facility] Comment on above: Result Comment: 3.3 - 4.4 LOW RISK 4.4 - 7.1 AVERAGE RISK 7.1 - 11.0 MODERATE RISK >11.0 HIGH RISK Performed By: #### L IPID, CMP #### [facility] [address] [address] [address] Klever Amin Cholesterol [Mass/Vol] 201 mg/dL Critically high <=200 [facility] Comment on above: Performed By: #### L IPID, CMP #### [facility] [address] [address] [address] Klever Amin Cholesterol in HDL [Mass/Vol] 48 mg/dL Normal 40-60 [facility] Comment on above: Performed By: #### L IPID, CMP #### [facility] [address] [address] [address] Klever Amin Cholesterol in LDL [Mass/Vol] 140.2 mg/dL Normal [facility] Comment on above: Performed By: #### L IPID, CMP #### [facility] [address] [address] [address] Klever Amin Cholesterol.total/Cho lesterol in HDL [Mass ratio] 4.2 {ratio} Normal [facility] Comment on above: Performed By: #### L IPID, CMP #### [facility] [address] [address] [address] Klever Amin HDL NORMAL > or = 60 mg/dl - LO W CARDIOVASCULAR RISK <40 mg/dl - HIGH CARDIOVASCULAR RISK Normal [facility] Comment on above: Performed By: #### L IPID, CMP #### [facility] [address] [address] [address] Klever Amin LDL CALC NORMAL SEE BELOW Normal [facility] Comment on above: Result Comment: <100 mg/dl OPTIMAL 100 - 129 mg/dl NEAR OR ABOVE OPTIMAL 130 - 159 mg/dl BORDERLINE HIGH 160 - 189 mg/dl HIGH >190 mg/dl VERY HIGH Performed By: #### L IPID, CMP #### [facility] [address] [address] [address] Klever Amin Triglyceride [Mass/Vol] 64 mg/dL Normal <=150 [facility] Comment on above: Performed By: #### L IPID, CMP #### [facility] [address] [address] [address] Klever Amin VLDL CALC 12.8 mg/dL Normal [facility] Comment on above: Performed By: #### L IPID, CMP #### [facility] [address] [address] [address] Klever Amin PROF 14(COMP METB)on 022 Albumin [Mass/Vol] 3.7 g/dL Normal 3.4-5.0 [facility] Comment on above: Performed By: #### L IPID, CMP #### [facility] [address] [place] [address] Dr. Klever Amin Albumin/Globulin [Mass ratio] 1.1 {ratio} Normal [facility] Comment on above: Performed By: #### L IPID, CMP #### [facility] [address] [place] [address] Dr. Klever Amin ALP [Catalytic activity/Vol] 48 U/L Normal 46-116 [facility] Comment on above: Performed By: #### L IPID, CMP #### [facility] [address] [place] [address] Dr. Klever Amin ALT [Catalytic activity/Vol] 26 U/L Normal 16-63 [facility] Comment on above: Performed By: #### L IPID, CMP #### [facility] [address] [address] [address] Klever Amin Anion gap [Moles/Vol] 10.1 mmol/L Normal [facility] Comment on above: Performed By: #### L IPID, CMP #### [facility] [address] [place] [address] Dr. Klever Amin AST [Catalytic activity/Vol] 15 U/L Normal 15-37 [facility] Comment on above: Performed By: #### L IPID, CMP #### [facility] [address] [address] [address] Klever Amin Bilirubin [Mass/Vol] 0.4 mg/dL Normal 0.2-1.3 [facility] Comment on above: Performed By: #### L IPID, CMP #### [facility] [address] [place] [address] Dr. Klever Amin Calcium [Mass/Vol] 8.4 mg/dL Critically low 8.5-10.1 [facility] Comment on above: Performed By: #### L IPID, CMP #### [facility] [address] [place] [address] Dr. Klever Amin Chloride [Moles/Vol] 106 mmol/L Normal 98-107 [facility] Comment on above: Performed By: #### L IPID, CMP #### [facility] [address] [place] [address] Dr. Klever Amin CO2 [Moles/Vol] 29.0 mmol/L Normal 22.0-30.0 [facility] Comment on above: Performed By: #### L IPID, CMP #### [facility] [address] [place] [address] Dr. Klever Amin Creatinine [Mass/Vol] 0.89 mg/dL Normal 0.66-1.25 [facility] Comment on above: Performed By: #### L IPID, CMP #### [facility] [address] [place] [address] Dr. Klever Amin EGFR-AF PARAGUAYAN >60 Normal >=60 [facility] Comment on above: Performed By: #### L IPID, CMP #### [facility] [address] [place] [address] Dr. Klever Amin EGFR-NON AF PARAGUAYAN >60 Normal >=60 [facility] Comment on above: Performed By: #### L IPID, CMP #### [facility] [address] [place] [address] Dr. Klever Amin Globulin (S) [Mass/Vol] 3.3 g/dL Normal [facility] Comment on above: Performed By: #### L IPID, CMP #### [facility] [address] [address] [address] Klever Amin Glucose [Mass/Vol] 101 mg/dL Normal 74-106 [facility] Comment on above: Performed By: #### L IPID, CMP #### [facility] [address] [place] [address] Dr. Klever Amin Potassium [Moles/Vol] 4.1 mmol/L Normal 3.4-5.0 [facility] Comment on above: Performed By: #### L IPID, CMP #### [facility] [address] [place] [address] Dr. Klever Amin Protein [Mass/Vol] 7.0 g/dL Normal 6.1-8.2 [facility] Comment on above: Performed By: #### L IPID, CMP #### [facility] [address] [place] [address] Dr. Klever Amin Sodium [Moles/Vol] 141 mmol/L Normal 137-145 [facility] Comment on above: Performed By: #### L IPID, CMP #### [facility] [address] [place] [address] Dr. Klever Amin Urea nitrogen [Mass/Vol] 26.0 mg/dL Critically high 7.0-18.0 [facility] Comment on above: Performed By: #### L IPID, CMP #### [facility] [address] [place] [address] Dr. Klever Amin Urea nitrogen/Creatinine [Mass ratio] 29.2 mg/mg Normal [facility] Comment on above: Performed By: #### L IPID, CMP #### [facility] [address] [place] [address] Dr. Klever Amin [facility]25 SARS-CoV-2 (COVID-19) RNA JEANIE+probe Ql (Unsp spec) Not detected Normal NOT DETECTED [facility] Comment on above: Result Comment: This test is not yet approved or cleared by the [place] FDA. When there are no FDA-approved or cleared tests available, and other criteria are met, FDA can make tests available under an emergency access mechanism called an Emergency Use Authorization (EUA). The EUA for this test is supported by the [place] of Health and Human Service's (HHS's) declaration that circumstances exist to justify the emergency use of in vitro diagnostics for the detection and/or diagnosis of the virus that causes COVID-19. This EUA will remain in effect (meaning this test can be used) for the duration of the COVID-19 declaration justifying emergency of IVDs, unless it is terminated or revoked by FDA (after which the test may no longer be used). When diagnostic testing is negative, the possibility of a false negative should be considered in the context of a patient's recent exposures and the presence of clinical signs and symptoms consistent with SARS-CoV-2. Performed By: #### [facility] #### [facility] [address] [place] [address] Dr. Klever Amin CBC AUTO DIFFon 05-07-2021 BASO # 0.0 103/ul Normal 0.0-0.1 [facility] Comment on above: Performed By: #### C BC #### [facility] [address] [place] [address] Dr. Klever Amin Basophils/100 WBC (Bld) 0.5 % Normal 0.2-2.0 [facility] Comment on above: Performed By: #### C BC #### [facility] [address] [place] [address] Dr. Klever Amin EO # 0.2 103/ul Normal 0.0-0.7 [facility] Comment on above: Performed By: #### C BC #### [facility] [address] [place] [address] Dr. Klever Amin Eosinophils/100 WBC (Bld) 3.1 % Normal 0.9-7.0 [facility] Comment on above: Performed By: #### C BC #### [facility] [address] [place] [address] Dr. Klever Amin Erythrocyte distribution width (RBC) [Ratio] 12.8 % Normal 11.0-15.0 [facility] Comment on above: Performed By: #### C BC #### [facility] [address] [place] [address] Dr. Klever Amin Hematocrit (Bld) [Volume fraction] 45.6 % Normal 42.0-54.0 [facility] Comment on above: Performed By: #### C BC #### [facility] [address] [place] [address] Dr. Klever Amin Hemoglobin (Bld) [Mass/Vol] 15.0 g/dL Normal 14.0-18.0 [facility] Comment on above: Performed By: #### C BC #### [facility] [address] [place] [address] Dr. Klever Amin IG # 0.06 10e3/ul Critically high 0.00-0.03 [facility] Comment on above: Performed By: #### C BC #### [facility] [address] [place] [address] Dr. Kleevr Amin IG % 0.8 % Critically high 0.0-0.5 [facility] Comment on above: Performed By: #### C BC #### [facility] [address] [place] [address] Dr. Klever Amin LYMPH # 1.3 103/ul Normal 1.2-3.8 [facility] Comment on above: Performed By: #### C BC #### [facility] [address] [place] [address] Dr. Klever Amin Lymphocytes/100 WBC (Bld) 16.1 % Critically low 20.5-60.0 [facility] Comment on above: Performed By: #### C BC #### [facility] [address] [place] [address] Dr. Klever Amin MANUAL DIFF REQ NO Normal [facility] Comment on above: Performed By: #### C BC #### [facility] [address] [place] [address] Dr. Klever Amin MCH (RBC) [Entitic mass] 30.4 pg Normal 25.9-34.0 [facility] Comment on above: Performed By: #### C BC #### [facility] [address] [place] [address] Dr. Klever Amin MCHC (RBC) [Mass/Vol] 32.9 g/dL Normal 29.9-35.2 [facility] Comment on above: Performed By: #### C BC #### [facility] [address] [place] [address] Dr. Klever Amin MCV (RBC) [Entitic vol] 92.3 fL Normal 80.0-94.0 [facility] Comment on above: Performed By: #### C BC #### [facility] [address] [address] [address] Klever Amin MONO # 0.9 103/ul Critically high 0.3-0.8 [facility] Comment on above: Performed By: #### C BC #### [facility] [address] [place] [address] Dr. Klever Amin Monocytes/100 WBC (Bld) 11.2 % Normal 1.7-12.0 [facility] Comment on above: Performed By: #### C BC #### [facility] [address] [place] [address] Dr. Klever Amin NEUT # 5.4 103/ul Normal 1.4-6.5 [facility] Comment on above: Performed By: #### C BC #### [facility] [address] [place] [address] Dr. Klever Amin Neutrophils/100 WBC (Bld) 68.3 % Normal 43.0-75.0 [facility] Comment on above: Performed By: #### C BC #### [facility] [address] [place] [address] Dr. Klever Amin Platelet mean volume (Bld) [Entitic vol] 8.8 fL Critically low 9.5-13.5 [facility] Comment on above: Performed By: #### C BC #### [facility] [address] [place] [address] Dr. Klever Amin PLT 246 103/ul Normal 150-450 [facility] Comment on above: Performed By: #### C BC #### [facility] [address] [place] [address] Dr. Klever Amin RBC 4.94 106/ul Normal 4.70-6.10 [facility] Comment on above: Performed By: #### C BC #### [facility] [address] [address] [address] Klever Amin WBC 7.8 103/ul Normal 4.0-11.0 [facility] Comment on above: Performed By: #### C BC #### [facility] [address] [address] [address] Klever Amin LIPID PROFILEon 05-07-2021 CHOL-HDL RATIO NORM SEE BELOW Normal [facility] Comment on above: Result Comment: 3.3 - 4.4 LOW RISK 4.4 - 7.1 AVERAGE RISK 7.1 - 11.0 MODERATE RISK >11.0 HIGH RISK Performed By: #### L IPID, CMP #### [facility] [address] [place] [address] Dr. Klever Amin Cholesterol [Mass/Vol] 189 mg/dL Normal <=200 [facility] Comment on above: Performed By: #### L IPID, CMP #### [facility] [address] [place] [address] Dr. Klever Amin Cholesterol in HDL [Mass/Vol] 52 mg/dL Normal [facility] Comment on above: Performed By: #### L IPID, CMP #### [facility] [address] [place] [address] Dr. Klever Amin Cholesterol in LDL [Mass/Vol] 125.6 mg/dL Normal [facility] Comment on above: Performed By: #### L IPID, CMP #### [facility] [address] [place] [address] Dr. Klever Amin Cholesterol.total/Cho lesterol in HDL [Mass ratio] 3.6 {ratio} Normal [facility] Comment on above: Performed By: #### L IPID, CMP #### [facility] [address] [place] [address] Dr. Klever Amin HDL NORMAL > or = 60 mg/dl - LO W CARDIOVASCULAR RISK <40 mg/dl - HIGH CARDIOVASCULAR RISK Normal [facility] Comment on above: Performed By: #### L IPID, CMP #### [facility] [address] [place] [address] Dr. Klever Amin LDL CALC NORMAL SEE BELOW Normal [facility] Comment on above: Result Comment: <100 mg/dl OPTIMAL 100 - 129 mg/dl NEAR OR ABOVE OPTIMAL 130 - 159 mg/dl BORDERLINE HIGH 160 - 189 mg/dl HIGH >190 mg/dl VERY HIGH Performed By: #### L IPID, CMP #### [facility] [address] [place] [address] Dr. Klever Amin Triglyceride [Mass/Vol] 57 mg/dL Normal <=150 [facility] Comment on above: Performed By: #### L IPID, CMP #### [facility] [address] [place] [address] Dr. Klever Amin VLDL CALC 11.4 mg/dL Normal [facility] Comment on above: Performed By: #### L IPID, CMP #### [facility] [address] [place] [address] Dr. Klever Amin PROF 14(COMP METB)on 021 Albumin [Mass/Vol] 3.6 g/dL Normal 3.5-5.0 [facility] Comment on above: Performed By: #### L IPID, CMP #### [facility] [address] [place] [address] Dr. Klever Amin Albumin/Globulin [Mass ratio] 1.1 {ratio} Normal [facility] Comment on above: Performed By: #### L IPID, CMP #### [facility] [address] [place] [address] Dr. Klever Amin ALP [Catalytic activity/Vol] 44 U/L Normal 38-126 [facility] Comment on above: Performed By: #### L IPID, CMP #### [facility] [address] [place] [address] Dr. Klever Amin ALT [Catalytic activity/Vol] 26 U/L Normal 21-72 [facility] Comment on above: Performed By: #### L IPID, CMP #### [facility] [address] [place] [address] Dr. Klever Amin Anion gap [Moles/Vol] 11.3 mmol/L Normal [facility] Comment on above: Performed By: #### L IPID, CMP #### [facility] [address] [place] [address] Dr. Klever Amin AST [Catalytic activity/Vol] 17 U/L Normal 17-59 [facility] Comment on above: Performed By: #### L IPID, CMP #### [facility] [address] [place] [address] Dr. Klever Amin Bilirubin [Mass/Vol] 0.6 mg/dL Normal 0.2-1.3 [facility] Comment on above: Performed By: #### L IPID, CMP #### [facility] [address] [place] [address] Dr. Klever Amin Calcium [Mass/Vol] 8.7 mg/dL Normal 8.4-10.2 [facility] Comment on above: Performed By: #### L IPID, CMP #### [facility] [address] [place] [address] Dr. Klever Amin Chloride [Moles/Vol] 104 mmol/L Normal 98-107 [facility] Comment on above: Performed By: #### L IPID, CMP #### [facility] [address] [place] [address] Dr. Klever Amin CO2 [Moles/Vol] 28.9 mmol/L Normal 22.0-30.0 [facility] Comment on above: Performed By: #### L IPID, CMP #### [facility] [address] [place] [address] Dr. Klever Amin Creatinine [Mass/Vol] 0.80 mg/dL Normal 0.66-1.25 [facility] Comment on above: Performed By: #### L IPID, CMP #### [facility] [address] [place] [address] Dr. Klever Amin EGFR-AF PARAGUAYAN >60 Normal >=60 [facility] Comment on above: Performed By: #### L IPID, CMP #### [facility] [address] [place] [address] Dr. Klever Amin EGFR-NON AF PARAGUAYAN >60 Normal >=60 [facility] Comment on above: Performed By: #### L IPID, CMP #### [facility] [address] [place] [address] Dr. Klever Amin Globulin (S) [Mass/Vol] 3.3 g/dL Normal [facility] Comment on above: Performed By: #### L IPID, CMP #### [facility] [address] [place] [address] Dr. Klever Amin Glucose [Mass/Vol] 99 mg/dL Normal 74-106 [facility] Comment on above: Performed By: #### L IPID, CMP #### [facility] [address] [place] [address] Dr. Klever Amin Potassium [Moles/Vol] 4.2 mmol/L Normal 3.4-5.0 [facility] Comment on above: Performed By: #### L IPID, CMP #### [facility] [address] [place] [address] Dr. Klever Amin Protein [Mass/Vol] 6.9 g/dL Normal 6.1-8.2 [facility] Comment on above: Performed By: #### L IPID, CMP #### [facility] [address] [place] [address] Dr. Klever Amin Sodium [Moles/Vol] 140 mmol/L Normal 137-145 [facility] Comment on above: Performed By: #### L IPID, CMP #### [facility] [address] [place] [address] Dr. Klever Amin Urea nitrogen [Mass/Vol] 20.0 mg/dL Normal 9.0-20.0 [facility] Comment on above: Performed By: #### L IPID, CMP #### [facility] [address] [place] [address] Dr. Klever Amin Urea nitrogen/Creatinine [Mass ratio] 25.0 mg/mg Normal [facility] Comment on above: Performed By: #### L IPID, CMP #### [facility] [address] [place], [place] [id number] Dr. Klever Amin Vital Signs Date Time Vital Sign Value Performing Clinician Felix mayers 08-23-2023 14:04-0500 Blood Pressure Location Ahuja Marymini [facility] 08-23-2023 14:04-0500 Diastolic blood pressure 88 mm[Hg] Ahuja Sarmini [facility] 08-23-2023 14:04-0500 Heart rate 80 /min Ahuja Sarmini [facility] 08-23-2023 14:04-0500 Respiratory rate 18 /min Ahuja Sarmini [facility] 08-23-2023 14:04-0500 Systolic blood pressure 124 mm[Hg] Ahuja Sarmini [facility] Encounters Encounter Date Encounter Type Care Provider Facility Start: 10-24-2023 End: 10-24-2023 ambulatory Inocencia L Pablo Facility:[facility] Start: 08-23-2023 End: 12-07-2023 Pre-admission assessment Ahuja Talal Sarmini [facility] Start: 08-23-2023 End: 08-23-2023 ambulatory Ahuja Talal Sarmini Facility:[facility] Start: 08-23-2023 End: 08-23-2023 Patient encounter procedure Ahuja Talal Sarmini [facility] Start: 07-30-2023 End: 07-30-2023 ambulatory Inocencia L Pablo Facility:[facility] Start: 05-31-2023 ambulatory Inocencia Pablo Facility: [facility] Start: 05-08-2023 End: 05-08-2023 ambulatory AMY BARAZI [facility] Start: 05-01-2023 End: 05-01-2023 ambulatory Inocencia L Pablo Facility:[facility] Start: 03-22-2023 End: 03-22-2023 ambulatory Inocencia L Pablo Facility:[facility] Start: 03-20-2023 End: 03-20[facility] Start: 03-15-2023 End: 03-15-2023 Lab Drop off Inocencia L Pablo [facility] Start: 03-15-2023 End: 03-15-2023 ambulatory Inocencia L Pablo Facility:[facility] Start: 03-14-2023 End: 04-20-2023 ambulatory Inocencia L Pablo Facility:CD:[id number] Start: 10-13-2021 Encounter for genera l adult medical examination without abnormal findings DR TETE MELGAR [facility] Start: 10-11-2021 End: 10-12-[address] TETE MELGAR Facility:[facility] Start: 10-11-2021 End: 10-12-2021 Encounter for general adult medical examination without abnormal findings DR TETE MELGAR Facility:[facility] Start: 06-10-2021 Encounter for preprocedural laboratory examination DR SHIREEN CHAWLA [facility] Start: 06-08-2021 End: 06-08-[address] SHIREEN CHAWLA Facility:[facility] Start: 06-04-2021 End: 06-05-[address] SHIREEN CHAWLA Facility:[facility] Start: 06-04-2021 End: 06-05-2021 Encounter for preprocedural laboratory examination DR SHIREEN CHAWLA Facility:[facility] Start: 05-07-2021 End: 05-08-[address] TETE MELGAR Facility:[facility] Procedures Date Procedure Procedure Detail Performing Clinician Start: 10-11-[address] SADAF CHAWLA Comment on above: Performed By: #### [facility] #### [facility] [address] [place] [address] Dr. Klever Amin Start: 05-07-[address] SADAF CHAWLA Comment on above: Performed By: #### P [facility] #### [facility] [address] [place] [address] Dr. Klever Amin Appendectomy Inocencia Shah Cystoscopy Inocencia Baxterab Excision of inner ear Inocencia Deluna chwab Immunizations Immunization Date Immunization Notes Care Provider Fa cili 05-06-2021 SARS-CoV-2 (COVID-19 ) Ad26 vaccine, recombinant Inocencia Shah [facility] NEGATED: Highlighted row has not occurred!08-22-2023 influenza virus vaccine, unspecified formulation Leigha Michael [facility] NEGATED: Highlighted row has not occurred!09-15-2022 SARS-CoV-2 mRNA (tozinameran 5y-11y) vaccine Inocencia Shah [facility] NEGATED: Highlighted row has not occurred!09-15-2022 influenza virus vaccine, unspecified formulation Inocencia Shah [facility] Payers Date Payer Category Payer Private Health Insurance [id number] 1960 Unknown [id number] 2.16.84 [id number] 1960 Unknown [id number] 2.16.84 [id number] 1960 Unknown [id number] 2.16.84 [id number] 1960 Unknown [id number] 2.16.84 [id number] 1960 Unknown [id number] 2.16.8 [id number] 1960 Unknown [id number] 2.16.8 [id number] 1960 Unknown [id number] 2.16.8 [id number] 1960 Unknown [id number] 2.16.8 [id number] 1960 Unknown [id number] 2.16.8 [id number] 1960 Unknown [id number] 2.16.8 [id number] 1960 Unknown [id number] 2.16.8 [id number] 1959 Unknown [id number] Social History Date Type Detail Facility Start: 03-15-2023 End: 10-24-2023 Tobacco smoking status Never smoked tobacco (finding) [facility] Tobacco smoking status Never [facility] Sex Assigned At Male [facility] Functional Status Date Assessment Result Facility 08-23-2023 Functional Status N/A [facility] Clinical Note 07-30-2023 Note Date & Type Note Facility 07-30-2023 Note HPI Staff This visit was conducted via two-way, real-time interactive video communications by Inocencia Bravo from my office using [employer]. The patient was located at their home, located at [address] [place], [place] [id number], with _ in attendance. A signed authorization for treatment has been obtained via our standard authorization packet or by verbal consent by the patient or their legal agency sales representative. The patient's identity and location in [place] has been verified by our office staff. If it is determined that the patient should be evaluated in the clinic, the patient will be directed to the appropriate clinic or venue. A limited physical exam will be conducted reviewing those areas of the body visible via telecommunications. Total time spent preparing the chart, conducting the encounter with the patient and family, and time spent documenting, reviewing, and ordering tests was _ minutes. All records and visits comply with HIPAA standards. Patient or Guardian reported vitals: Temp: _ Wt: _ Ht: _ BP: _ HR: _ Sp02: _ Pt tested positive for covid on 07/27/23 using at home test C/O: Duration: _ Body aches: no Chills: no Fatigue: no Cough: no Sore throat: no Fever: no Headache: no Nasal congestion: no Loss of taste: no Loss of smell: no Eye itching/watering: no Sneezing: no SOB: no Known Exposure: no Occupation: Remedies tried: History of Covid 19 previously Vaccinated against covid 19:yes History of Present Illness covid positive cough, congestion, body aches Review of Systems ROS - Provider Constitutional: no fever, no chills, no sweats, yes fatigue Respiratory: no shortness of breath, no cough, no orthopnea, no wheezing. cough congestion body aches Cardiovascular: no chest pain, no palpitations, no edema. Neurologic: no headache, no dizziness, no numbness, no weakness. Physical Exam unable to perform physical exam due to video visit Assessment/Plan 1. COVID-19 virus detected (U07.1: COVID-19) pt + for covid. has had paxlovid in the past and it has been greater than 48 hours since symptoms started. will treat will z brandon and medrol dose pack. as well and tessalon pearls. pt encourage to stay hydrated and rest Ordered: azithromycin, = 1 packet(s), Oral, As Directed, as directed on package labeling, X 5 day(s), # 6 tab(s), Refills(s) 0, Pharmacy: [facility]/pharmacy #[id number], 175, cm, 05/01/23 13:19:00 EST, Height/Length Dosing, 96, kg, 05/01/23 13:19:00 EST, Weight Dosing benzonatate, 200 mg = 1 cap(s), Oral, TID, X 7 day(s), # 21 cap(s), Refills(s) 0, Pharmacy: [facility]/pharmacy #[id number], 175, cm, 05/01/23 13:19:00 EST, Height/Length Dosing, 96, kg, 05/01/23 13:19:00 EST, Weight Dosing methylPREDNISolone, = 1 packet(s), Oral, As Directed, as directed on package labeling, X 6 day(s), # 21 tab(s), Refills(s) 0, [id number] 175, cm, 05/01/23 13:19:00 EST, Height/Length Dosing, 96, kg, 05/01/23 13:19:00 EST, Weight Dosing TELEHEALTH Office Visit Level 3 Est [id number] Orders: methylPREDNISolone, = 1 packet(s), Oral, Once, as directed on package labeling, # 21 tab(s), Refills(s) 0, [id number], 175, cm, 05/01/23 13:19:00 EST, Height/Length Dosing, 96, kg, 05/01/23 13:19:00 EST, Weight Dosing Follow-up No qualifying data available Problem List/Past Medical History Ongoing Atrial fibrillation Back muscle spasm BMI 30.0-30.9,adult COVID-19 virus detected GERD (gastroesophageal reflux disease) Meniere's disease Migraine headache Otitis media of both ears Screening for malignant neoplasm of colon Sinusitis Stomach ulcer Historical No qualifying data Procedure/Surgical History Appendectomy, Cystoscopy, Labyrinthectomy. Medications acetaminophen-oxycodone 325 mg-5 mg Tab azithromycin 250 mg Tab, 1 packet(s), Oral, As Directed benzonatate 200 mg oral capsule, 200 mg= 1 cap(s), Oral, TID Medrol 4 mg Tab, 1 packet(s), Oral, As Directed Metoprolol tartrate 25 mg Tab, 25 mg= 1 tab(s), Oral, BID, 1 refills omeprazole 40 mg Cap-DR, 40 mg= 1 cap(s), Oral, Daily, 3 refills tizanidine 4 mg oral capsule, 4 mg= 1 cap(s), Oral, TID, 1 refills Allergies penicillin (Unknown) Social History Alcohol Current, Beer, Daily, 05/25/2021 Substance Abuse - Denies Substance Abuse, 05/25/2021 Tobacco Never (less than 100 in lifetime) Tobacco Use:. Never Smokeless Tobacco Use:. Household tobacco concerns: No., 03/22/2023 Family History Cardiac arrest: Mother and Father. Diabetes mellitus type 2: Mother. Immunizations Vaccine Date Status Comments SARS-CoV-2 mRNA (mattien 5y-11y) vac - Not Given Postpone due to refusal influenza virus vaccine, inactivated - Not Given Postpone due to refusal SARS-CoV-2 (COVID-19) Ad26 vaccine 05/06/2021 Recorded [facility] Comment on above: Result Comment: Elec troaaronally Signed By: Inocencia Bravo\Date and Time Signed: 07/30/23 11:47 EST Progress note 05-08-2023 Note Date & Type Note Facility 05-08-2023 Note Patient here for [facility] low up event monitor. He denies chest pain, SOB, palpitations, and lightheadedness. Review of Systems Musculoskeletal: Positive for back pain. All other systems reviewed and are negative. [facility] Progress note 05-08-2023 Note Date & Type Note Facility 05-08-2023 Note [facility] Consult Note Reason for visit: Afib 05/15/23: patient here for follow-up he had a 30-day event monitor does not been finalized does not show any episodes of A-fib did show short episodes of SVT which she was asymptomatic for has been feeling with no complaints of chest pain, shortness of breath, palpitations ECG 03/20/2023 is normal sinus rhythm 03/20/23 HPI: Mariam Addison is a 62 y.o. year old with no Known cardiac history was recently admitted to [place] ED with complaints of back pain and upper GI bleed. He was admitted and observed and his hemoglobin was stable and therefore did not require any transfusion he underwent EGD that showed multiple gastric ulcers which was believed to be secondary to NSAID use due to his chronic back pain. while he was admitted in the hospital he went into atrial fibrillation with rapid ventricular rate for which she was placed on Cardizem and Lopressor and eventually converted to sinus rhythm spontaneously. echocardiogram work-up done in the hospital was unremarkable. given that he had upper GI bleed and his CHADSVASC score is 0, he was not placed on IV coagulation and was discharged home. Today he feels like he is doing fine and back to baseline. he is not on any NSAIDs anymore. EKG 03/20/2023 in the clinic shows sinus rhythm PMH: No past medical history on file. PSH: No past surgical history on file. SH: Social Determinants of Health Tobacco Use: Not on file Alcohol Use: Not on file Financial Resource Strain: Not on file Food Insecurity: Not on file Transportation Needs: Not on file Physical Activity: Not on file Stress: Not on file Social Connections: Not on file Intimate Partner Violence: Not on file Depression: Not on file Housing Stability: Not on file Allergies: Allergies Allergen Reactions Penicillins Other and Unknown Weight: 97.5kg Visit Vitals BP 119/82 (BP Location: Left arm, Patient Position: Sitting) Pulse 65 Ht 1.753 m (5' 9 ) Wt 97.5 kg (215 lb) SpO2 95% BMI 31.75 kg/m??? BSA 2.18 m??? Meds: Current Outpatient Medications on File Prior to Visit Medication Sig Dispense Refill cyclobenzaprine (Flexeril) 10 mg tablet Take 10 mg by mouth if needed in the morning, at noon, and at bedtime for muscle spasms. metoprolol tartrate (Lopressor) 25 mg tablet Take 25 mg by mouth in the morning and at bedtime. oxyCODONE-acetaminophen (Percocet) 5-325 mg tablet Take 1 tablet by mouth every 8 (eight) hours if needed for severe pain (8-10 pain score). No current facility-administered medications on file prior to visit. ROS: Cardio Basic Cardiovascular Symptoms: no lightheadedness, no leg edema, no syncope, no orthopnea, no PND, no claudication, Constitutional Constitutional: no fever, no night sweats, no significant weight gain, no significant weight loss, no exercise intolerance Eyes Eyes: no dry eyes, no irritation, no vision change ENMT Ears: no difficulty hearing, no ear pain Nose: no frequent nosebleeds, Mouth/Throat: no sore throat, no bleeding gums, no snoring, no dry mouth, no mouth ulcers, no oral abnormalities, no teeth problems Respiratory Respiratory: no cough, no wheezing, no coughing up blood, no sleep apnea Musculoskeletal Musculoskeletal: no muscle aches, no muscle weakness, joint pain+, no back pain, no swelling in the extremities Integumentary Skin no rash, no ulcer, no varicosities, no discoloration, no pruritus Neurologic Neurologic: no loss of consciousness, no weakness, no numbness, no seizures, no dizziness, no headaches Psychiatric Psych: no depression, feeling safe in relationship, no alcohol abuse, Hematologic/Lymphatic Hematologic/Lymphatic no swollen glands, no bruising Physical Exam: Constitutional General Appearance: well-nourished, well-developed, appears stated age Level of Distress: comfortable Psychiatric Mental Status: alert, normal affect Orientation: oriented to time, place, and person Insight: good judgement Eyes Lids and Conjunctivae: non-injected, no xanthelasma ENMT Ears: no lesions on external ear Nose: no lesions on external nose Oropharynx: no cyanosis, no pallor Neck Neck: supple, trachea midline Carotid Arteries: bilateral normal upstroke, no bruits Jugular Veins: normal jugular venous pressure Thyroid: not enlarged Lungs Respiratory Effort: unlabored Chest Exam: normal curvature, no thoracic deformity Auscultation: clear, no wheezing, no rales, no rhonchi Cardiovascular Rate And Rhythm: regular Heart Sounds: normal S1, normal s2, no gallop Systolic Murmur: not heard Diastolic Murmur: not heard Extremities: no cyanosis, no edema, no peripheral signs of emboli Peripheral Pulses Radial Pulse: normal Abdomen Inspection and Palpation: soft, non distended, no bruit, non tender Musculoskeletal Inspection: no joint swelling Neurologic Gait: normal gait Skin Inspecti (more content not included)... [facility] Progress note 03-20-2023 Note Date & Type Note Facility 03-20-2023 Note [facility] Consult Note Reason for visit: Afib HPI: Mariam Addison is a 62 y.o. year old with no Known cardiac history was recently admitted to [place] ED with complaints of back pain and upper GI bleed. He was admitted and observed and his hemoglobin was stable and therefore did not require any transfusion he underwent EGD that showed multiple gastric ulcers which was believed to be secondary to NSAID use due to his chronic back pain. while he was admitted in the hospital he went into atrial fibrillation with rapid ventricular rate for which she was placed on Cardizem and Lopressor and eventually converted to sinus rhythm spontaneously. echocardiogram work-up done in the hospital was unremarkable. given that he had upper GI bleed and his CHADSVASC score is 0, he was not placed on IV coagulation and was discharged home. Today he feels like he is doing fine and back to baseline. he is not on any NSAIDs anymore. EKG 03/20/2023 in the clinic shows sinus rhythm PMH: No past medical history on file. PSH: No past surgical history on file. SH: Social Determinants of Health Tobacco Use: Not on file Alcohol Use: Not on file Financial Resource Strain: Not on file Food Insecurity: Not on file Transportation Needs: Not on file Physical Activity: Not on file Stress: Not on file Social Connections: Not on file Intimate Partner Violence: Not on file Depression: Not on file Housing Stability: Not on file Allergies: Not on File Weight: 94.8kg Visit Vitals BP 127/88 (BP Location: Left arm, Patient Position: Sitting) Pulse 72 Wt 94.8 kg (209 lb) SpO2 98% BMI 30.86 kg/m??? BSA 2.15 m??? Meds: Current Outpatient Medications on File Prior to Visit Medication Sig Dispense Refill cyclobenzaprine (Flexeril) 10 mg tablet Take 10 mg by mouth if needed in the morning, at noon, and at bedtime for muscle spasms. metoprolol tartrate (Lopressor) 25 mg tablet Take 25 mg by mouth in the morning and at bedtime. oxyCODONE-acetaminophen (Percocet) 5-325 mg tablet Take 1 tablet by mouth every 8 (eight) hours if needed for severe pain (8-10 pain score). No current facility-administered medications on file prior to visit. ROS: Cardio Basic Cardiovascular Symptoms: no lightheadedness, no leg edema, no syncope, no orthopnea, no PND, no claudication, Constitutional Constitutional: no fever, no night sweats, no significant weight gain, no significant weight loss, no exercise intolerance Eyes Eyes: no dry eyes, no irritation, no vision change ENMT Ears: no difficulty hearing, no ear pain Nose: no frequent nosebleeds, Mouth/Throat: no sore throat, no bleeding gums, no snoring, no dry mouth, no mouth ulcers, no oral abnormalities, no teeth problems Respiratory Respiratory: no cough, no wheezing, no coughing up blood, no sleep apnea Musculoskeletal Musculoskeletal: no muscle aches, no muscle weakness, joint pain+, no back pain, no swelling in the extremities Integumentary Skin no rash, no ulcer, no varicosities, no discoloration, no pruritus Neurologic Neurologic: no loss of consciousness, no weakness, no numbness, no seizures, no dizziness, no headaches Psychiatric Psych: no depression, feeling safe in relationship, no alcohol abuse, Hematologic/Lymphatic Hematologic/Lymphatic no swollen glands, no bruising Physical Exam: Constitutional General Appearance: well-nourished, well-developed, appears stated age Level of Distress: comfortable Psychiatric Mental Status: alert, normal affect Orientation: oriented to time, place, and person Insight: good judgement Eyes Lids and Conjunctivae: non-injected, no xanthelasma ENMT Ears: no lesions on external ear Nose: no lesions on external nose Oropharynx: no cyanosis, no pallor Neck Neck: supple, trachea midline Carotid Arteries: bilateral normal upstroke, no bruits Jugular Veins: normal jugular venous pressure Thyroid: not enlarged Lungs Respiratory Effort: unlabored Chest Exam: normal curvature, no thoracic deformity Auscultation: clear, no wheezing, no rales, no rhonchi Cardiovascular Rate And Rhythm: regular Heart Sounds: normal S1, normal s2, no gallop Systolic Murmur: not heard Diastolic Murmur: not heard Extremities: no cyanosis, no edema, no peripheral signs of emboli Peripheral Pulses Radial Pulse: normal Abdomen Inspection and Palpation: soft, non distended, no bruit, non tender Musculoskeletal Inspection: no joint swelling Neurologic Gait: normal gait Skin Inspection and Palpation: warm and dry Nails: no clubbing Labs: @LABRESULTS@ No results found for: CHOLESTEROL TOTAL, HDL, LDL CALC, LDL DIRECT, TRIGLYCERIDES, TSH, T3 TOTAL, T4 TOTAL, THYROID PEROXIDASE AB, BNP, BNP, BNP EKG: No results found for this or any previous visit (from the past 4464 hour(s)).\ 03/11/2023 at 2:30 PM shows A-fib with varying ventricular rate 03/11/2023 at 940 03/09/2023 a (more content not included)... [facility] Clinical Note 06-08-2021 Note Date & Type Note Facility 06-08-2021 Note OPERATIVE NOTE OPERATION DATE: 06-08-21 ANESTHETIC:Monitored anesthesia care. PREOPERATIVE DIAGNOSIS: Colorectal screening. POSTOPERATIVE DIAGNOSIS:Normal colonoscopy to the cecum. PROCEDURE NAME:Colonoscopy. ESTIMATED BLOOD LOSS: Zero. INDICATIONS AND CONSENT: The patient is a 60 year-old male who presents for colorectal screening. Indications, risks, benefits, and alternatives of proceeding with colonoscopy were explained extensively to the patient including the risk of bleeding, colon perforation, or anesthetic complications. All of his questions were answered and informed consent was obtained. PROCEDURE: The patient was brought to the OR and placed in the left lateral decubitus position. Monitored anesthesia care was provided. Rectal exam was performed which showed no masses or blood. The scope was inserted into the anal canal, under direct visualization it was advanced. With the aid of abdominal compression it was advanced to the cecum where cecal markings were clearly identified. Upon withdrawal of the scope mucosal surfaces were carefully examined. There was noted to be a good prep, there were no mass lesions or polyps, no inflammatory changes or ulcerations. No significant diverticulosis, the scope was retroflexed in the anal canal, there was noted to be some prominent rectal veins, but no significant hemorrhoidal disease. The scope was then withdrawn. The patient tolerated the procedure well and was sent to the Recovery Room in good condition. Followup colonoscopy should be in 10 years for colorectal screening. cc:Dr. Melgar. [facility] Signed and Approved by: DR SHIREEN CHAWLA . 06/08/2021 09:55:00 [facility] Evaluation + Plan note Note Date & Type Note Facility Evaluation + Plan note No data available for this section [facility] Evaluation + Plan note Note Date & Type Note Facility Evaluation + Plan note Future Appointments Appointment Date:12/06/2023 10:45:00 AM Scheduled Provider: Location:[facility] Appointment Type:Surgery [facility] Discharge instructions Note Date & Type Note Facility Hospital Discharge instructions No data available for this section [facility] Progress note Note Date & Type Note Facility Progress note No data available for this section [facility] Summary Purpose Family History No Family History Records FoundNo Family History Records Found No data available for this section No Family History Records Found No data available for this section Advance Directives No Advanced Directives Records FoundNo Advanced Directives Records FoundNo Advanced Directives Records Found Additional Source Comments (unrecognized sect ion and content) No Status Records FoundNo Status Records FoundNo Status Records Found INFORMATION SOURCE (unrecogn ized section and content) DATE CREATED AUTHOR 10/15/2021 [facility] DATE CREATED AUTHOR AUTHOR'S ORGANIZ ATION 05/17/2023 [facility] DATE CREATED AUTHOR AUTHOR'S ORGANIZ ATION 12/03/2023 [facility] Patient Care team informatio n (unrecognized section and content) Personnel Name: Inocencia Bravo Address: Address: [address] [place] [address]- Personnel Name: Inocencia Bravo Address: Address: [address] [place] [address]- Personnel Name: Inocencia Bravo Address: Address: [address] [place] [address]- FOR RECORDS PERTAINING TO PATIENTS WHO ARE OR HAVE BEEN ENROLLED IN A CHEMICAL DEPENDENCY/SUBSTANCEABUSE PROGRAM, SOME INFORMATION MAY BE OMITTED. This clinical summary was aggregated from multiple sources. Caution should be exercised in using it in the provision of clinical care. This summary normalizes information from multiple sources, and as a consequence, information in this document may materially change the coding, format and clinical context of patient data. In addition, data may be omitted in some cases. CLINICAL DECISIONS SHOULD BE BASED ON THE PRIMARY CLINICAL RECORDS. [email or web address]. provides no warranty or guarantee of the accuracy or completeness of information in this document.
[2024-08-04 11:20] VITALS: BP 150/109; PULSE 87; TEMP 36.2; O2SAT 98; BMI 33.2
[2024-08-04] MEDS: CEFAZOLIN SODIUM 2 GM/50 ML D5W PREMIX IV (11:46)
[2024-08-04] MEDS: BUPIVACAINE HCL 0.5% PF 50 MG/10 ML VIAL 2.5 ML INJ (12:04)
[2024-08-04] MEDS: LIDOCAINE HCL 1%-EPINEPHRINE 1:100,000 20 ML MDV 2.5 ML INJ (12:04)
--- NOTE | 2024-08-04 12:41 | PM.ORPRC ---
Procedure Note Date of procedure: 08/04/24 Pre-op diagnosis: Right trigger thumb Post-op diagnosis: same as pre-op Procedure: Preoperative Diagnosis: Left trigger thumb Postoperative Diagnosis: Same Operative Procedure: Left trigger thumb release Surgeon: Serg Rose MD Anesthesia: Local Estimated Blood Loss: Minimal Tourniquet Time: None Complications: None Indications for surgery: The patient has had painful triggering. Treatment options were discussed with the patient as well as risks and benefits and they have elected to proceed with the above surgery. Operative Procedure: After informed consent was obtained the patient was brought to the operating room and placed in the supine position. Preoperatively they received intravenous antibiotics and local anesthetic infiltrated over the A1 robbin of the left thumb. 3 mL 1% lidocaine with epinephrine combined with 3 mL half percent Marcaine plain was utilized. The arm was prepped and draped in the usual sterile fashion. . A 1 cm incision was made in a preexisting transverse crease overlying the A1 robbin. Blunt dissection was carried down to the A1 robbin. The robbin was then incised from distal to proximal. Complete release was performed. The underlying tendon was visualized and found to be normal. The patient then flexed the digit and the triggering had resolved. The wound was irrigated and closed with a nylon suture. A sterile dressing was placed. The patient was then brought to the recovery room. There were no intraoperative or postoperative complications. Come back here Anesthesia: local Surgeon: Juan Rose Estimated blood loss (mL): 1 Pathology: none sent Condition: stable Disposition: PACU
== END 2024-08-04 12:44 | disposition home or self-care (01) ==
PROVIDERS: PCP Nurse Practitioner; Visit Provider Orthopaedic Surgery
PROC: (CPT 26055; principal; 2024-08-04 12:00)
DX: M65.311 Trigger thumb, right thumb (principal)
CPT/HCPCS: 26055; J0665; J0690

== ENCOUNTER 2024-08-20 14:28 | Outpatient (RCR) | payer OTHER, SELFPAY | END 2024-09-11 09:45 | disposition home or self-care (01) | LOC: OT 14:28 | PROVIDERS: PCP Nurse Practitioner; Visit Provider Orthopaedic Surgery | DX: M65.311 Trigger thumb, right thumb (principal); S63.601A Unspecified sprain of right thumb, initial encounter | CPT/HCPCS: 97018; 97140; 97166; 97530 ==